=== PATIENT | female | born 1945 | race Caucasian/White ===

== ENCOUNTER → 2018-07-11 | Outpatient (CLI) | payer MEDICARE ==
[~2018-07-11] MED LIST: BENZAPRIL; CLINDAMYCIN
--- NOTE | 2018-07-11 11:57 | Diagnostic Imaging Report ---
INDICATION: Fall and left ankle pain. TIME OF EXAM: 11:42 a.m. FINDINGS: Three views of the left ankle demonstrate a nondisplaced fracture of the distal fibula. No significant displacement or angulation is seen. There is moderate soft tissue swelling about the lateral ankle. The ankle mortise is maintained. Talar dome is smooth. IMPRESSION: Nondisplaced distal fibular fracture. Dictated by: Dictated on workstation # [id number]
--- NOTE | 2018-07-11 12:02 | Diagnostic Imaging Report ---
INDICATION: Fall with left foot pain. Time of exam 11:45 AM 3 views of the left foot were obtained. There are severe degenerative changes involving the first MTP joint. There appear to be osseous erosive changes of the distal first metatarsal as well as the proximal phalanx of the great toe. The remaining MTP joints are unremarkable. No fractures are identified. Midfoot and hindfoot are unremarkable apart from some degenerative changes at the tarsal metatarsal joints. Impression: Chronic changes with severe erosive changes at the first MTP joint perhaps on the basis of an inflammatory arthritis. No acute bony abnormality is seen. Dictated by: Dictated on workstation # [id number]
== END ==
LOC: RAD 11:08
PROVIDERS: ATTEND Nurse Practitioner Family
DX: S82.832A Other fracture of upper and lower end of left fibula, initial encounter for closed fracture (principal); M85.872 Other specified disorders of bone density and structure, left ankle and foot; W19.XXXA Unspecified fall, initial encounter
CPT/HCPCS: 73610; 73630

== ENCOUNTER → 2022-01-19 | Outpatient (CLI) | payer MEDICARE ==
--- NOTE | 2022-01-19 13:17 | Diagnostic Imaging Report ---
INDICATION: R WRIST PAIN, R ARM PAIN, R HAND PAIN COMPARISON: None. FINDINGS: 2 views of the right forearm were obtained and show no fractures, dislocations, or other acute bony abnormalities. Joint spaces are well maintained throughout. The soft tissues appear unremarkable. No radiopaque foreign bodies are identified. IMPRESSION: Unremarkable radiographic exam of the right forearm. Dictated by: Dictated on workstation # [id number]
--- NOTE | 2022-01-19 13:18 | Diagnostic Imaging Report ---
INDICATION: R WRIST PAIN, R ARM PAIN, R HAND PAIN COMPARISON: None. FINDINGS: 3 views of the right hand were obtained and show no fractures, dislocations, or other acute bony abnormalities. Multiple advanced osteoarthritic changes are noted, greatest at the 1st carpometacarpal joint space and 5th interphalangeal joint space. The soft tissues appear unremarkable. No radiopaque foreign bodies are identified. IMPRESSION: Advanced osteoarthritic changes, but no acute fracture or dislocation of the right hand. Dictated by: Dictated on workstation # [id number]
== END ==
LOC: RAD 11:34
PROVIDERS: ATTEND Family Medicine
DX: M19.031 Primary osteoarthritis, right wrist (principal); M19.041 Primary osteoarthritis, right hand; M79.601 Pain in right arm
CPT/HCPCS: 73090; 73130

== ENCOUNTER 2022-05-18 08:20 | Inpatient (IN) | payer MEDICARE ==
[2022-05-18] VITALS (10 sets, daily range): BP systolic 104–155; BP diastolic 61–85
[~2022-05-18] VITALS: Ht 157 cm; Wt 48.0 kg
[2022-05-18 09:00] LABS: BASOPHILS % (AUTO) 0 % (0-10); EOSINOPHILS % (AUTO) 0 % (0-10); HEMATOCRIT 46 % (35-52); HEMOGLOBIN 15.4 g/dL (11.5-16.0); LYMPHOCYTES # (AUTO) 1.2 10^3/uL (1.0-4.0); LYMPHOCYTES % (AUTO) 9 % (12-44); MEAN CORPUSCULAR HEMOGLOBIN 29 pg (25-34); MEAN CORPUSCULAR HGB CONC 33 g/dL (32-36); MEAN CORPUSCULAR VOLUME 87 fL (80-99); MONOCYTES # (AUTO) 1.2 10^3/uL (0.0-1.0); MONOCYTES % (AUTO) 9 % (0-12); NEUTROPHILS # (AUTO) 10.8 10^3/uL (1.8-7.8); NEUTROPHILS % (AUTO) 81 % (42-75); PLATELET COUNT 381 10^3/uL (130-400); WHITE BLOOD COUNT 13.3 10^3/uL (4.3-11.0)
[2022-05-18] MEDS ORDERED: LACTATED RINGERS 1,000 ML IV ONE (09:00)
[2022-05-18] MEDS ORDERED: ONDANSETRON 4 MG/2 ML (SDV) Z0FRAN IVP ONE (09:00)
[2022-05-18 09:10] LABS: ALBUMIN 4.5 GM/DL (3.2-4.5)
[2022-05-18 09:11] LABS: CALCIUM 10.1 MG/DL (8.5-10.1)
[2022-05-18 09:13] LABS: TOTAL PROTEIN 8.5 GM/DL (6.4-8.2)
[2022-05-18 09:14] LABS: BILIRUBIN,TOTAL 1.6 MG/DL (0.1-1.0)
[2022-05-18 09:16] LABS: CREATININE SERUM 1.68 MG/DL (0.60-1.30)
--- NOTE | 2022-05-18 09:43 | ED GI ---
General Chief Complaint: Abdominal/GI Problems Stated Complaint: N/V Nursing Triage Note: PT PRESENTS TO ED VIA POV FROM HOME WITH COMPLAINTS OF NO BM SINCE 05/14/22. PT STATES SHE HAS NOT EATEN SINCE LAST WEDNESDAY WELL. PT REPORTS SHE STARTED VOMITING WEDNESDAY NIGHT. PT STATES HER LAST EPISODE OF EMESIS SMELLED LIKE STOOL. Source of Information: Patient Exam Limitations: No Limitations History of Present Illness Date Seen by Provider: May 18, 2022 Time Seen by Provider: 08:54 Initial Comments This 77-year-old woman presents to the emergency room with complaints of nausea and vomiting for 5 days. She noticed a "lymph node" in the right groin at the onset of symptoms. Vomiting started 6 or 7 hours later. She feels constipated and has had small hard stools recently. Her last bowel movement was on , the day of symptom onset. She has not had any fever. She has not been able to keep down any oral intake. She has some mild pain with vomiting, but pain is not a prominent feature of her symptoms. She states her emesis the past 2 days has had the appearance and smell of stool. She reports tachycardia with heart rate in the 120s at home. Allergies and Home Medications Allergies Coded Allergies: Penicillins (Unverified Allergy, Mild, 12/04/09) Patient Home Medication List Home Medication List Reviewed: Yes , (Reported) Entered as Reported by: ANTONIO SMILEY on 12/04/0942 [Benzapril] , (Reported) Entered as Reported by: ANTONIO SMILEY on 12/04/0943 Review of Systems Review of Systems Constitutional: no symptoms reported EENTM: No Symptoms Reported Respiratory: No Symptoms Reported Cardiovascular: See HPI Gastrointestinal: See HPI Genitourinary: No Symptoms Reported Musculoskeletal: no symptoms reported Skin: no symptoms reported Psychiatric/Neurological: No Symptoms Reported Endocrine: No Symptoms Reported Hematologic/Lymphatic: See HPI Past Breeyhy-Byurga-Ovtwmp Hx Patient Social History Tobacco Use?: No Substance use?: No Alcohol Use?: No Pt feels they are or have been: No Immunizations Up To Date First/Initial COVID19 Vaccinat: YES Second COVID19 Vaccination Arnav: YES COVID19 Vaccine Drug Safety Associate: MODERNA Past Medical History Surgery/Hospitalization HX: PMH: LEAKING HEART VALVES, HTN, Surgeries: Yes (Neck tumor resection) Breast (Bilateral mastectomy and implants) Respiratory: No Cardiac: Yes Hypertension, Rheumatic Fever, Valvular Heart Disease Neurological: No : No Reproductive Disorders: No Genitourinary: No Gastrointestinal: No Musculoskeletal: Yes Arthritis HEENT: No Cancer: No Psychosocial: No Integumentary: No Physical Exam Vital Signs Vital Signs - First Documented 05/18/22 08:39 Temp 36.6 Pulse 98 Resp 16 B/P (MAP) 133/82 (99) Pulse Ox 95 Capillary Refill : Less Than 3 Seconds Height/Weight/BMI Height: '" Weight: lbs. oz. kg; 19.00 BMI Method:Stated General Appearance: WD/WN, no apparent distress, thin HEENT: PERRL/EOMI, normal ENT inspection, other (Pasty dry mouth) Neck: normal inspection Respiratory: lungs clear, normal breath sounds, no respiratory distress Cardiovascular: regular rate, rhythm, no edema, no murmur Gastrointestinal: normal bowel sounds, soft, distended; No tenderness; other (Tympanic to percussion, firm lump in the right inguinal canal region about 3 x 5 cm that is not reducible and could represent an inguinal hernia.) Extremities: normal inspection, no pedal edema Neurologic/Psychiatric: digital composer II-XII nml as tested, no motor/sensory deficits, alert, normal mood/affect, oriented x 3 Skin: normal color, warm/dry Progress/Results/Core Measures Results/Orders Lab Results Laboratory Tests Test 05/18/22 08:54 05/18/22 10:13 Range/Units White Blood Count 13.3 H 4.3-11.0 10^3/uL Red Blood Count 5.29 H 3.80-5.11 10^6/uL Hemoglobin 15.4 11.5-16.0 g/dL Hematocrit 46 35-52 % Mean Corpuscular Volume 87 80-99 fL Mean Corpuscular Hemoglobin 29 25-34 pg Mean Corpuscular Hemoglobin Concent 33 32-36 g/dL Red Cell Distribution Width 12.5 10.0-14.5 % Platelet Count 381 130-400 10^3/uL Mean Platelet Volume 10.0 9.0-12.2 fL Immature Granulocyte % (Auto) 0 % Neutrophils (%) (Auto) 81 H 42-75 % Lymphocytes (%) (Auto) 9 L 12-44 % Monocytes (%) (Auto) 9 0-12 % Eosinophils (%) (Auto) 0 0-10 % Basophils (%) (Auto) 0 0-10 % Neutrophils # (Auto) 10.8 H 1.8-7.8 10^3/uL Lymphocytes # (Auto) 1.2 1.0-4.0 10^3/uL Monocytes # (Auto) 1.2 H 0.0-1.0 10^3/uL Eosinophils # (Auto) 0.0 0.0-0.3 10^3/uL Basophils # (Auto) 0.0 0.0-0.1 10^3/uL Immature Granulocyte # (Auto) 0.1 0.0-0.1 10^3/uL Sodium Level 137 135-145 MMOL/L Potassium Level 4.0 3.6-5.0 MMOL/L Chloride Level 97 L 98-107 MMOL/L Carbon Dioxide Level 25 21-32 MMOL/L Anion Gap 15 H 5-14 MMOL/L Blood Urea Nitrogen 39 H 7-18 MG/DL Creatinine 1.68 H 0.60-1.30 MG/DL Estimat Glomerular Filtration Rate 31 BUN/Creatinine Ratio 23 Glucose Level 127 H 70-105 MG/DL Calcium Level 10.1 8.5-10.1 MG/DL Corrected Calcium 9.7 8.5-10.1 MG/DL Total Bilirubin 1.6 H 0.1-1.0 MG/DL Aspartate Amino Transf (AST/SGOT) 29 5-34 U/L Alanine Aminotransferase (ALT/SGPT) 23 0-55 U/L Alkaline Phosphatase 83 40-136 U/L C-Reactive Protein High Sensitivity 4.19 H 0.00-0.50 MG/DL Total Protein 8.5 H 6.4-8.2 GM/DL Albumin 4.5 3.2-4.5 GM/DL Lipase 45 8-78 U/L Urine Color YELLOW Urine Clarity SL CLOUDY Urine pH 7.0 5-9 Urine Specific [place] 1.015 L 1.016-1.022 Urine Protein 2+ H NEGATIVE Urine Glucose (UA) NEGATIVE NEGATIVE Urine Ketones TRACE H NEGATIVE Urine Nitrite NEGATIVE NEGATIVE Urine Bilirubin NEGATIVE NEGATIVE Urine Urobilinogen 0.2 < = 1.0 MG/DL Urine Leukocyte Esterase 3+ H NEGATIVE Urine RBC (Auto) TRACE-I H NEGATIVE Urine RBC RARE /HPF Urine WBC 50-100 H /HPF Urine Squamous Epithelial Cells 10-25 H /HPF Urine Crystals NONE /LPF Urine Bacteria FEW H /HPF Urine Casts PRESENT /LPF Urine Hyaline Casts 2-5 H /LPF Urine Mucus SMALL H /LPF Urine Culture Indicated YES My Orders Orders - AN CORRAL MD Cbc With Automated Diff (05/18/22 08:54) Comprehensive Metabolic Panel (05/18/22 08:54) Hs C Reactive Protein (05/18/22 08:54) Lipase (05/18/22 08:54) Ua Culture If Indicated (05/18/22 08:54) Ed Iv/Invasive Line Start (05/18/22 08:54) Lactated Ringers (Lr 1000 Ml Iv Solution (05/18/22 09:00) Ondansetron Injection (Zofran Injectio (05/18/22 09:00) Ct Abdomen/Pelvis Wo (05/18/22 09:33) Benzocaine Extension Tube (Hurricaine Ex (05/18/22 10:15) Ng Tube Insert & Assessment (05/18/22 10:46) Urine Culture (05/18/22 10:13) Lidocaine/Epi Mpf 2% 1:200,000 (Xylocain (05/18/22 11:51) Medications Given in ED Current Medications Medications Dose Ordered Sig/Rashard Route Start Time Stop Time Status Last Admin Dose Admin Benzocaine 1 ea ONCE ONCE XX 05/18/22 10:15 05/18/22 10:16 DC 05/18/22 11:13 1 EA Lactated Ringer's 1,000 ml @ 0 mls/hr Q0M ONCE IV 05/18/22 09:00 05/18/22 09:01 DC 05/18/22 09:03 0 MLS/HR Ondansetron HCl 8 mg ONCE ONCE IVP 05/18/22 09:00 05/18/22 09:01 DC 05/18/22 09:03 8 MG Vital Signs/I&O 05/18/22 08:39 Temp 36.6 Pulse 98 Resp 16 B/P (MAP) 133/82 (99) Pulse Ox 95 Blood Pressure Mean: 99 Progress Progress Note #1: Time: 09:42 Progress Note Patient was treated with Zofran and IV fluids are infusing. Labs were reviewed. Patient appears to have acute kidney injury. The "lymph node" in her groin could be incarcerated inguinal hernia. CT scan is pending. Progress Note #2: Time: 11:57 Progress Note Patient has been stable without complaints during her ER stay. CT scan revealed right inguinal hernia. I again attempted to reduce this unsuccessfully. The hernia appears very firm and incarcerated. I spoke with Dr. Anaya who anticipates surgery around the noon hour today. He has presented to the ER to see the patient personally. Departure Communication (Admissions) Time/Spoke to Admitting Phy: 10:47 Dr. Anaya Impression Primary Impression: Right inguinal hernia Additional Impressions: Small bowel obstruction Nausea and vomiting Qualified Codes: R11.2 - Nausea with vomiting, unspecified Disposition: ADMITTED INPATIENT Condition: Stable Admissions Decision to Admit Reason: Admit from ER (General) Decision to Admit/Date: May 18, 2022 Time/Decision to Admit Time: 10:47 Departure-Patient Inst. Referrals: ZHEN ESCOBAR DO (PCP/Family) Primary Care Physician Copy Copies To 1: ZHEN ESCOBAR JOSHUA T MD May 18, 2022 09:42
[2022-05-18] MEDS ORDERED: HURRICAINE EXT TUBE (BENZOCAINE) XX ONE (10:15)
--- NOTE | 2022-05-18 10:23 | Diagnostic Imaging Report ---
PROCEDURE: CT abdomen and pelvis without contrast. TECHNIQUE: Multiple contiguous axial images were obtained through the abdomen and pelvis without the use of intravenous contrast. Auto Exposure Controls were utilized during the CT exam to meet ALARA standards for radiation dose reduction. INDICATION: Vomiting, constipation, pain. COMPARISON: No prior examinations are available for comparison. FINDINGS: There are findings of mid small bowel obstruction. The transition appears to be in the right lower quadrant associated with the right inguinal hernia with the hernia sac contents medial to the neurovascular bundle. There is some distal decompressed pelvic small bowel through the terminal ileum and the colon is nondilated. The colonic fecal load is not pathologic. There are a few scattered sigmoidal diverticula but no features of diverticulitis. The fluid-containing stomach has an air-fluid level and is mildly distended. No pneumatosis. No free gas. The liver, gallbladder, bile ducts, spleen, adrenals, and pancreas are all nonacute. There is no hydroureteronephrosis. IMPRESSION: 1. There is a mid small bowel obstruction, believed to be secondary to a right inguinal hernia, with the proximal small bowel dilated. There is an air-fluid level within the mildly distended stomach. 2. The distal small bowel and colon are nondilated. There is noninflamed colonic and sigmoidal diverticulosis. Dictated by: Dictated on workstation # [id number]
[2022-05-18 10:26] LABS: BILIRUBIN,URINE NEGATIVE (NEGATIVE); CLARITY,URINE SL CLOUDY; COLOR,URINE YELLOW; GLUCOSE, URINE (UA) NEGATIVE (NEGATIVE); KETONES,URINE TRACE (NEGATIVE); LEUKOCYTE ESTERASE ,URINE 3+ (NEGATIVE); NITRITE,URINE NEGATIVE (NEGATIVE); PROTEIN,URINE 2+ (NEGATIVE)
[2022-05-18 11:06] LABS: BACTERIA,URINE FEW /HPF; RBC,URINE RARE /HPF; WBC,URINE 50-100 /HPF
[2022-05-18] MEDS ORDERED: LIDOCAINE/EPI 2% 1:200,00 (XYLOCAINE) 20 ML VIAL ONE (11:51)
--- NOTE | 2022-05-18 12:14 | Consultation - Surgery ---
History of Present Illness History of Present Illness Patient Consulted On(amelie/time) 05/18/22 12:08 Date Seen by Provider: May 18, 2022 Time Seen by Provider: 12:08 History of Present Illness Consult seen and evaluated in ED for incarcerated right inguinal hernia, small bowel obstruction. 77 year old female noticed hard lump in right groin last . Developed nausea and vomiting. Thought lump was a lymph node. Nothing made better or worse. Came to the ED to be further evaluated. Had ct scan showing right inguinal hernia with bowel in it. Dilated small bowel. Allergies and Home Medications Allergies Coded Allergies: Penicillins (Unverified Allergy, Mild, 12/04/09) Patient Home Medication List Home Medication List Reviewed: Yes , (Reported) Entered as Reported by: ANTONIO SMILEY on 12/04/09 004 [Benzapril] , (Reported) Entered as Reported by: ANTONIO SMILEY on 12/04/09 0044 Past Kpbecki-Drpxmo-Jhnerb Hx Patient Social History Smoking Status: Never a Smoker Alcohol Use?: No Surgeries History of Surgeries: Yes (Neck tumor resection) Surgeries: Breast (Bilateral mastectomy and implants) Respiratory History of Respiratory Disorde: No Cardiovascular History of Cardiac Disorders: Yes Cardiac Disorders: Hypertension, Rheumatic Fever, Valvular Heart Disease Neurological History of Neurological Disord: No Reproductive System : No Hx Reproductive Disorders: No Genitourinary History of Genitourinary Disor: No Gastrointestinal History of Gastrointestinal Di: No Musculoskeletal History of Musculoskeletal Dis: Yes Musculoskeletal Disorders: Arthritis HEENT History of HEENT Disorders: No Cancer History of Cancer: No Psychosocial History of Psychiatric Problem: No Integumentary History of Skin or Integumenta: No Reviewed Nursing Assessment Reviewed/Agree w Nursing PMH: Yes Family Medical History Significant Family History: No Pertinent Family Hx Review of Systems-General Constitutional: No chills, No diaphoresis EENTM: No blurred vision, No double vision Respiratory: No cough, No dyspnea on exertion Cardiovascular: No chest pain, No palpitations Gastrointestinal: nausea, vomiting, other (right groin lump) Genitourinary: No decreased output, No discharge Musculoskeletal: No back pain, No joint pain Skin: No change in color, No change in hair/nails Psychiatric/Neurological: Denies Anxiety, Denies Depressed, Denies Emotional Problems All Other Systems Reviewed Negative Unless Noted: Yes (Negative excepted noted.) Physical Exam-General Problems Physical Exam Vital Signs Vital Signs - First Documented 05/18/22 08:39 Temp 36.6 Pulse 98 Resp 16 B/P (MAP) 133/82 (99) Pulse Ox 95 Capillary Refill : Less Than 3 Seconds General Appearance: no apparent distress, thin HEENT: PERRL/EOMI, normal ENT inspection Neck: non-tender, supple Respiratory: chest non-tender, no respiratory distress, no accessory muscle use Cardiovascular: regular rate, rhythm, no JVD Gastrointestinal: soft, other (right inguinal hernia) Rectal: deferred Back: no CVA tenderness, no vertebral tenderness Extremities: non-tender, normal inspection Neurologic/Psychiatric: alert, normal mood/affect, oriented x 3 Skin: normal color, warm/dry Lymphatic: no adenopathy Data Review Labs Laboratory Tests 05/18/22 08:54: White Blood Count 13.3H, Red Blood Count 5.29H, Hemoglobin 15.4, Hematocrit 46, Mean Corpuscular Volume 87, Mean Corpuscular Hemoglobin 29, Mean Corpuscular Hemoglobin Concent 33, Red Cell Distribution Width 12.5, Platelet Count 381, Mean Platelet Volume 10.0, Immature Granulocyte % (Auto) 0, Neutrophils (%) (Auto) 81H, Lymphocytes (%) (Auto) 9L, Monocytes (%) (Auto) 9, Eosinophils (%) (Auto) 0, Basophils (%) (Auto) 0, Neutrophils # (Auto) 10.8H, Lymphocytes # (Auto) 1.2, Monocytes # (Auto) 1.2H, Eosinophils # (Auto) 0.0, Basophils # (Auto) 0.0, Immature Granulocyte # (Auto) 0.1, Sodium Level 137, Potassium Level 4.0, Chloride Level 97L, Carbon Dioxide Level 25, Anion Gap 15H, Blood Urea Nitrogen 39H, Creatinine 1.68H, Estimat Glomerular Filtration Rate 31, BUN/Creatinine Ratio 23, Glucose Level 127H, Calcium Level 10.1, Corrected Calcium 9.7, Total Bilirubin 1.6H, Aspartate Amino Transf (AST/SGOT) 29, Alanine Aminotransferase (ALT/SGPT) 23, Alkaline Phosphatase 83, C-Reactive Protein High Sensitivity 4.19H, Total Protein 8.5H, Albumin 4.5, Lipase 45 05/18/22 10:13: Urine Color YELLOW, Urine Clarity SL CLOUDY, Urine pH 7.0, Urine Specific [place] 1.015L, Urine Protein 2+H, Urine Glucose (UA) NEGATIVE, Urine Ketones TRACEH, Urine Nitrite NEGATIVE, Urine Bilirubin NEGATIVE, Urine Urobilinogen 0.2, Urine Leukocyte Esterase 3+H, Urine RBC (Auto) TRACE-IH, Urine RBC RARE, Urine WBC 50-100H, Urine Squamous Epithelial Cells 10-25H, Urine Crystals NONE, Urine Bacteria FEWH, Urine Casts PRESENT, Urine Hyaline Casts 2-5H, Urine Mucus SMALLH, Urine Culture Indicated YES Assessment/Plan Assessment/Plan Assessment/Plan right inguinal incarcerated hernia small bowel obstruction discussed need for surgery since incarcerated and possibly strangulated bowel. after discussing she wishes to proceed with open right inguinal hernia repair po ssible laparoscopy all other indicated procedures. understands possible need for small bowel resection. NPO To OR NG tube in. KEMI ÁLVAREZ DO May 18, 2022 12:14
[2022-05-18] MEDS ORDERED: ONDANSETRON 4 MG/2 ML (SDV) Z0FRAN ONE (12:15)
[2022-05-18] MEDS ORDERED: proPOfol 200 MG/20 ML (DIPRIVAN) VIAL IV ONE (12:15)
[2022-05-18] MEDS ORDERED: LIDOCAINE PF 2% 5 ML (XYLOCAINE) VIAL ONE (12:15)
[2022-05-18] MEDS ORDERED: ROCURONIUM 50 MG/5 ML (ZEMURON) VIAL IV ONE (12:15)
[2022-05-18] MEDS ORDERED: MIDAZOLAM 2 MG/2 ML (VERSED) VIAL ONE (12:15)
[2022-05-18] MEDS ORDERED: CLINDAMYCIN 600 MG/50 ML IVPB 50 ML IV ONE ×2 (12:15→12:17)
[2022-05-18] MEDS ORDERED: SUCCINYLCHOLINE INJ 100 MG/5 ML SYR/VIAL ONE (12:15)
[2022-05-18] MEDS ORDERED: fentaNYL INJ 100 MCG/2 ML AMP ONE (12:15)
[2022-05-18] MEDS: LACTATED RINGERS 1,000 ML IV PRN ×2 (12:35→13:30)
[2022-05-18] MEDS ORDERED: GLYCOPYRROLATE 0.2 MG/ML (ROBINUL) 2 ML VIAL ONE (13:38)
[2022-05-18] MEDS ORDERED: NEOSTIGMINE (BLOXIVERZ ) 1 MG/1ML 10 ML VIAL ONE (13:38)
--- NOTE | 2022-05-18 13:53 | Progress Note-Post Operative ---
Post-Operative Progess Note Surgeon (s)/Spa Host (s) Surgeon KEMI ÁLVAREZ DO Spa Host: Dr. Morales Pre-Operative Diagnosis right inguinal hernia, Post-Operative Diagnosis strangulated right femoral hernia Procedure & Operative Findings Date of Procedure 05/18/22 Procedure Performed/Findings open right strangulated femoral hernia repair with small bowel resection. Anesthesia Type general Estimated Blood Loss Estimated blood loss (mL): minimal Specimens/Packing Specimens Removed small bowel KEMI ÁLVAREZ DO May 18, 2022 13:53
[2022-05-18] MEDS ORDERED: morphine INJ 4 MG/ML 1 ML (VIAL/SYRINGE) IVP PRN (14:00)
[2022-05-18] MEDS ORDERED: SEVOFLURANE (ULTANE) 15 ML INHAL SOLN ONE (14:04)
[2022-05-18] MEDS ORDERED: ONDANSETRON 4 MG/2 ML (SDV) Z0FRAN IVP PRN (14:15)
[2022-05-18] MEDS ORDERED: HYDROmorphone 2 MG/ML VIAL (DILAUDID) IV ONE (14:15)
[2022-05-18] MEDS: metroNIDAZOLE 500MG/100ML IVPB 100 ML IV SCH ×2 (15:15→22:18)
[2022-05-18] MEDS: LACTATED RINGERS 1,000 ML IV SCH ×2 (15:24→20:10)
[2022-05-18] MEDS: CLINDAMYCIN 600 MG/50 ML IVPB 50 ML IV SCH (20:08)
[2022-05-19] VITALS (7 sets, daily range): BP systolic 131–163; BP diastolic 67–79
[2022-05-19] MEDS: CLINDAMYCIN 600 MG/50 ML IVPB 50 ML IV SCH (04:35)
--- NOTE | 2022-05-19 05:54 | OPERATIVE REPORT ---
DATE OF SERVICE: 05/18/2022 PREOPERATIVE DIAGNOSIS: Right inguinal hernia, incarcerated small bowel obstruction. POSTOPERATIVE DIAGNOSIS: Strangulated right femoral hernia. PROCEDURE: Open right femoral hernia repair with primary closure and small bowel resection. SURGEON: Jerry Anaya DO MANAGER SPANISH: Dr. Morales, assisted in retraction, dissection and closure. ANESTHESIA: General. ESTIMATED BLOOD LOSS: Minimal. COMPLICATIONS: None. INDICATIONS: The patient is a 77-year-old female, who had a lump in the right groin. She was having nausea, vomiting and CT scan showing a right inguinal hernia and changes of small bowel obstruction. The patient was discussed surgical options. She understands risks and benefits of procedure and wished to proceed. Consent was signed in the chart. DESCRIPTION OF PROCEDURE: The patient was taken to the operating suite. She was prepped and draped in sterile fashion. Timeout was performed. Local anesthetic was infiltrated in the right groin area. A 15 blade scalpel was used to make a skin incision and cautery used to dissect down to the external oblique, which the shelving edge of the right inguinal ligament was isolated and visualized. A mass was palpable below the inguinal ligament and the tissue was bluntly divided and small bowel was present, which had ischemic and necrotic changes . This was completely dissected around bluntly and then was able to be reduced. The femoral canal was closed with 0 Vicryl in a [id number] fashion. No mesh due to ischemic bowel. A small midline incision was made just below the umbilicus. The small bowel was then brought out demonstrating dilated small bowel proximal, the knuckle of bowel that was strangulated through the hernia was present with again ischemic changes distal to this area, but the bowel was decompressed proximal and distal to the ischemic area. Hemostat was used to dissect around the bowel and the bowel was brought through [id number] fashion and the stapler was placed down each limb and fired. A crotch stitch was placed using 2-0 0 Vicryl suture. A reload was then used to create the 3rd to complete the [id number]-me-rgnf anastomosis. The mesentery of the bowel being resected was divided and cross clamped with hemostats and cautery was used to remove this segment. The mesentery was then tied off and the mesenteric defect of the bowel was then closed with 3-0 Vicryl suture. The bowel was then ran from the cecum all the way to the ligament of Treitz, noting no other pathology except for towards the proximal portion of bowel. There were several small bowel diverticulum present. No other pathology. Prior to opening the midline incision, the right groin Rain fascia was closed using 3-0 Vicryl and the skin was then stapled closed. Once the bowel resection was performed using 1-0 looped PDS, the fascia was then closed in a running fashion. The midline incision was irrigated and the skin was then closed with khanh. The areas were washed and dried and sterile bandages were applied. The patient tolerated the procedure well without any complications. She was taken to recovery room in stable condition. RECOMMENDATIONS: Due to the primary repair due to the ischemic bowel, we will consider going back robotically in the near future to repair with mesh. Job ID: [id number] DocumentID: [id number] Dictated Date: 05/18/2022 22:44:49 Assistant Accounting Manager Date: 05/19/2022 05:52:50 Dictated By: DO KYLE RUSSELL
[2022-05-19 05:58] LABS: HEMATOCRIT 38 % (35-52); HEMOGLOBIN 12.5 g/dL (11.5-16.0); MEAN CORPUSCULAR HEMOGLOBIN 29 pg (25-34); MEAN CORPUSCULAR HGB CONC 33 g/dL (32-36); MEAN CORPUSCULAR VOLUME 88 fL (80-99); MEAN PLATELET VOLUME 10.4 fL (9.0-12.2); PLATELET COUNT 280 10^3/uL (130-400); WHITE BLOOD COUNT 9.4 10^3/uL (4.3-11.0)
[2022-05-19 06:09] LABS: ALBUMIN 3.2 GM/DL (3.2-4.5); POTASSIUM 3.6 MMOL/L (3.6-5.0)
[2022-05-19 06:10] LABS: CALCIUM 8.5 MG/DL (8.5-10.1)
[2022-05-19 06:11] LABS: TOTAL PROTEIN 5.9 GM/DL (6.4-8.2)
[2022-05-19 06:13] LABS: BILIRUBIN,TOTAL 1.3 MG/DL (0.1-1.0)
[2022-05-19 06:15] LABS: CREATININE SERUM 1.17 MG/DL (0.60-1.30)
[2022-05-19] MEDS: PANTOPRAZOLE 40 MG (PROTONIX) VIAL IV SCH (07:38)
[2022-05-19] MEDS: LACTATED RINGERS 1,000 ML IV SCH ×2 (07:38→18:21)
--- NOTE | 2022-05-19 08:34 | Progress Note - Surgery ---
Subjective Date Seen by a Provider: May 19, 2022 Time Seen by a Provider: 08:34 Subjective/Events-last exam Pain controlled. No flatus or bm. Ng tube to LIWS minimal output. Using IS. NPO Objective Exam Vital Signs Date Time Temp Pulse Resp B/P (MAP) Pulse Ox O2 Delivery O2 Flow Rate FiO2 05/19/22 07:53 37.5 98 18 153/73 (99) 84 Room Air 05/19/22 04:00 37.0 95 20 155/79 (104) 93 Room Air 05/19/22 00:00 37.0 90 18 138/74 (95) 94 Room Air 05/18/22 20:41 Room Air 05/18/22 19:01 37.2 88 18 140/65 (90) 94 Room Air 05/18/22 16:23 36.9 86 20 125/61 (82) 92 Room Air 05/18/22 15:08 36.5 75 16 131/69 (89) 97 Room Air 05/18/22 15:00 Room Air 05/18/22 14:55 Room Air 05/18/22 14:50 36.6 16 144/78 (100) 96 Room Air 05/18/22 14:40 Room Air 05/18/22 14:40 16 152/73 (99) 96 Room Air 05/18/22 14:30 16 148/78 (101) 100 OxyMask 3.00 05/18/22 14:25 OxyMask 5.00 05/18/22 14:20 21 155/77 (103) 100 OxyMask 5.00 05/18/22 14:10 20 131/66 (87) 100 OxyMask 8 05/18/22 14:10 OxyMask 8 05/18/22 14:00 20 104/85 (91) 100 OxyMask 8 05/18/22 13:55 OxyMask 8 05/18/22 13:55 36.9 16 105/84 (91) 100 OxyMask 8 05/18/22 12:29 70 16 126/78 98 05/18/22 08:39 36.6 98 16 133/82 (99) 95 I & O 05/19/22 07:00 Intake Total 2750 ml Output Total 350 ml Balance 2400 ml Capillary Refill : Less Than 3 Seconds General Appearance: No Apparent Distress, WD/WN HEENT: PERRL/EOMI, Normal ENT Inspection Neck: Normal Inspection, Non Tender Respiratory: Chest Non Tender, No Accessory Muscle Use, No Respiratory Distress Cardiovascular: Regular Rate, Rhythm, No JVD Gastrointestinal: soft, other (incisions c/d/i no signs of infection) Extremity: Normal Inspection, Non Tender Neurologic/Psychiatric: Alert, Oriented x3 Skin: Normal Color, Warm/Dry Lymphatic: No Adenopathy Results Lab Laboratory Tests 05/18/22 08:54: White Blood Count 13.3H, Red Blood Count 5.29H, Hemoglobin 15.4, Hematocrit 46, Mean Corpuscular Volume 87, Mean Corpuscular Hemoglobin 29, Mean Corpuscular Hemoglobin Concent 33, Red Cell Distribution Width 12.5, Platelet Count 381, Mean Platelet Volume 10.0, Immature Granulocyte % (Auto) 0, Neutrophils (%) (Auto) 81H, Lymphocytes (%) (Auto) 9L, Monocytes (%) (Auto) 9, Eosinophils (%) (Auto) 0, Basophils (%) (Auto) 0, Neutrophils # (Auto) 10.8H, Lymphocytes # (Auto) 1.2, Monocytes # (Auto) 1.2H, Eosinophils # (Auto) 0.0, Basophils # (Auto) 0.0, Immature Granulocyte # (Auto) 0.1, Sodium Level 137, Potassium Level 4.0, Chloride Level 97L, Carbon Dioxide Level 25, Anion Gap 15H, Blood Urea Nitrogen 39H, Creatinine 1.68H, Estimat Glomerular Filtration Rate 31, BUN/Creatinine Ratio 23, Glucose Level 127H, Calcium Level 10.1, Corrected Calcium 9.7, Total Bilirubin 1.6H, Aspartate Amino Transf (AST/SGOT) 29, Alanine Aminotransferase (ALT/SGPT) 23, Alkaline Phosphatase 83, C-Reactive Protein High Sensitivity 4.19H, Total Protein 8.5H, Albumin 4.5, Lipase 45 05/18/22 10:13: Urine Color YELLOW, Urine Clarity SL CLOUDY, Urine pH 7.0, Urine Specific [place] 1.015L, Urine Protein 2+H, Urine Glucose (UA) NEGATIVE, Urine Ketones TRACEH, Urine Nitrite NEGATIVE, Urine Bilirubin NEGATIVE, Urine Urobilinogen 0.2, Urine Leukocyte Esterase 3+H, Urine RBC (Auto) TRACE-IH, Urine RBC RARE, Urine WBC 50-100H, Urine Squamous Epithelial Cells 10-25H, Urine Crystals NONE, Urine Bacteria FEWH, Urine Casts PRESENT, Urine Hyaline Casts 2-5H, Urine Mucus SMALLH, Urine Culture Indicated YES 05/19/22 05:30: White Blood Count 9.4, Red Blood Count 4.36, Hemoglobin 12.5, Hematocrit 38, Mean Corpuscular Volume 88, Mean Corpuscular Hemoglobin 29, Mean Corpuscular Hemoglobin Concent 33, Red Cell Distribution Width 12.5, Platelet Count 280, Mean Platelet Volume 10.4, Sodium Level 138, Potassium Level 3.6, Chloride Level 102, Carbon Dioxide Level 25, Anion Gap 11, Blood Urea Nitrogen 27H, Creatinine 1.17, Estimat Glomerular Filtration Rate 48, BUN/Creatinine Ratio 23, Glucose Level 105, Calcium Level 8.5, Corrected Calcium 9.1, Total Bilirubin 1.3H, Aspartate Amino Transf (AST/SGOT) 20, Alanine Aminotransferase (ALT/SGPT) 15, Alkaline Phosphatase 54, Total Protein 5.9L, Albumin 3.2 Microbiology 05/18/22 Urine Culture - Final, Complete Mixed Bacterial Radha Assessment/Plan Assessment/Plan Assessment/Plan right inguinal incarcerated hernia small bowel obstruction s/p strangulated right femoral primary hernia repair and small bowel resection iv fluids dvt prophylaxis, gi prophylaxis awaiting bowel function IS NPO NG tube in. KEMI ÁLVAREZ DO May 19, 2022 08:34
--- NOTE | 2022-05-19 10:47 | Physical Therapy Evaluation ---
PT Evaluation-General Medical Diagnosis Admission Date May 18, 2022 at 13:47 Medical Diagnosis: small bowel obstruction Onset Date: May 18, 2022 Therapy Diagnosis Therapy Diagnosis: debility/weakness Precautions Precautions/Isolations: Fall Prevention, Standard Precautions Weight Bear Status Right Lower Extremity: Right Weight Bearing/Tolerated Left Lower Extremity: Left Weight Bearing/Tolerated Referral Physician: Héctor Reason for Referral: Evaluation/Treatment Medical History Pertinent Medical History: Breast CA S/P Mastectomy, HTN Current History ER secondary to abdominal pain and no BM since 05/14/22 Reviewed History: Yes Social History Home: Single Level Current Living Status: Alone Entry Into Home: Stairs With Railing PT Steps Into Home: 3 Prior Prior Level of Function SCALE: Activities may be completed with or without assistive devices. 1-Tqnwhshjmd-raxwkbb completes the activity by him/herself with no assistance from a helper. 5-Set-up or Clean-up Assistance-helper sets up or cleans up; patient completes activity. [place] assists only prior to or following the activity. 4-Supervision or Touching Assistance-helper provides verbal cues and/or t ouching/steadying and/or contact guard assistance as patient completes activity. Assistance may be provided throughout the activity or intermittently. 3-Partial/Moderate Assistance-helper does LESS THAN HALF the effort. [place] lifts, holds or supports trunk or limbs, but provides less than half the effort. 2-Substantial/Maximal Assistance-helper does MORE THAN HALF the effort. [place] lifts or holds trunk or limbs and provides more than half the effort. 0-Dqldcalga-ypwbtn does ALL the effort. Patient does none of the effort to complete the activity. Or, the assistance of 2 or more helpers is required for the patient to complete the activity. If activity was not attempted, code reason: 7-Patient Refused. 9-Not Applicable-not attempted and the patient did not perform the activity before the current illness, exacerbation or injury. 10-Not Attempted due to Environmental Limitations-(lack of equipment, weather restraints, etc.). 88-Not Attempted due to Medical Conditions or Safety Concerns. Bed Mobility: 6 Transfers (B,C,W/C): 6 Gait: 6 Stairs: 6 Indoor Mobility (Ambulation): Independent Stairs: Independent Prior Devices Use: None PT Evaluation-Current Subjective Patient agrees to PT. Objective Patient Orientation: Normal For Age Attachments: NG Tube, IV ROM/Strength ROM Lower Extremities bilateral LE WFL Strength Lower Extremities 4/5 grossly bilateral LE Integumentary/Posture Bowel Incontinence: No Bladder Incontinence: No Posture WFL Neuromuscular (Tone, Coordination, Reflexes) grossly intact Sensory Vision: Functional Hearing: Functional Sensation Right Lower Extremit: Intact Sensation Left Lower Extremity: Intact Transfers Lying to Sitting/Side of Bed(Q: 4 Sit to Stand (QC): 4 Chair/Hyx-fy-Wssmo Xfer(QC): 4 Gait Mode of Locomotion: Walk Anticipated Mode of Locomotion: Walk Walk 10 feet (QC): 4 Walk 50 ft with 2 Turns(QC): 88 Walk 150 ft (QC): 88 Distance: 10' x 2 Gait Assistive Device: FWW Balance Sitting Static: Normal Sitting Dynamic: Normal Standing Static: Normal Standing Dynamic: Normal Assessment/Needs 77 y.o. female, will be seen short term by skilled PT to address functional mobility to ensure safe return to home at maximum LOF. Rehab Potential: Fair PT Tree Thinner Goals Tree Thinner Goals PT Alf Goals Time Frame: May 23, 2022 Roll Left & Right (QC): 6 Sit to Lying (QC): 6 Lying-Sitting on Side/Bed(QC): 6 Sit to Stand (QC): 6 Chair/Mhj-bn-Yveqr Xfer(QC): 6 Toilet Transfer (QC): 6 Walk 10 feet (QC): 6 Walk 50ft with 2 Turns (QC): 6 Walk 150 ft (QC): 6 PT Plan Problem List Problem List: Activity Tolerance Treatment/Plan Treatment Plan: Continue Plan of Care Treatment Plan: Education, Functional Activity Britni, Functional Strength, Gait, Safety, Therapeutic Exercise, Transfers Treatment Duration: May 23, 2022 Frequency: 5 times per week Estimated Hrs Per Day: .25 hour per day Patient and/or Family Agrees t: Yes Discharge Recommendations Therapy Discharge Recommendati: Home & Family Time/GCodes Time In: 746 Time Out: 801 Total Billed Treatment Time: 15 Total Billed Treatment 1 visit EVModC 15 min JNAES DELGADO PT May 19, 2022 10:47
[2022-05-19] MEDS ORDERED: ACET-2267 PO (10:58)
[2022-05-19] MEDS ORDERED: OMEG1CAP24 PO (10:58)
[2022-05-19] MEDS ORDERED: LACT1CAP62 PO (10:58)
[2022-05-19] MEDS ORDERED: BENA40TA84 PO (10:58)
[2022-05-19] MEDS ORDERED: MTP100TCR PO (10:58)
[2022-05-19] MEDS ORDERED: CARB15DR58 OP (10:58)
[2022-05-19] MEDS ORDERED: MULT-1136 PO (10:58)
[2022-05-19] MEDS ORDERED: AMLO-251 PO (10:58)
[2022-05-19] MEDS ORDERED: UBID100C17 PO (10:58)
[2022-05-19] MEDS ORDERED: meTOprolol 5 MG/5 ML (LOPRESSOR) VIAL IV PRN (12:30)
--- NOTE | 2022-05-19 13:19 | Anesthesia-General Post-Op ---
General Patient Condition Mental Status/LOC: Same as Preop Cardiovascular: Satisfactory Nausea/Vomiting: Absent Respiratory: Satisfactory Pain: Controlled Complications: Absent Post Op Complications Complications None Follow Up Care/Instructions Patient Instructions None needed. Anesthesia/Patient Condition Patient Condition Patient is doing well, no complaints, stable vital signs, no apparent adverse anesthesia problems. No complications reported per nursing. AZAR BURNS CRNA May 19, 2022 13:19
[2022-05-19] MEDS: ENOXAPARIN 40 MG/0.4 ML (LOVENOX) SYR SC SCH (13:52)
[2022-05-19] MEDS: LIDOCAINE 4% (SALONPAS) PATCH TOP SCH (13:53)
--- NOTE | 2022-05-19 18:25 | Consultation ---
History of Present Illness History of Present Illness Patient Consulted On(arnav/time) 05/19/22 18:20 Date Seen by Provider: May 19, 2022 Time Seen by Provider: 12:30 History of Present Illness This is a 77 year old female who was taken to surgery for a strangulated right femoral hernia. She is currently post-op with NG tube in place and pain control. I am asked to consult for medical management. I follow this patient routinely for hypertension. She also follows routinely with cardiology for aortic stenosis. Allergies and Home Medications Allergies Coded Allergies: Penicillins (Verified Allergy, Mild, 05/18/22) adhesive tape (Verified Allergy, Unknown, 05/18/22) latex (Verified Allergy, Unknown, 05/18/22) vancomycin (Verified Allergy, Unknown, 05/18/22) Patient Home Medication List Home Medication List Reviewed: Yes Acetaminophen (Tylenol Extra Strength) 500 Mg Tablet, 500-1,000 MG PO Q8H PRN for PAIN-MILD (1-4), (Reported) Entered as Reported by: JUICE HERNANDEZ on 05/19/221057 Last Action: Reviewed Amlodipine Besylate (Amlodipine Besylate) 10 Mg Tablet, 10 MG PO HS, (Reported) Entered as Reported by: JUICE HERNANDEZ on 05/19/221057 Last Action: Reviewed Benazepril HCl (Benazepril HCl) 40 Mg Tab, 40 MG PO DAILY, (Reported) Entered as Reported by: JUICE HERNANDEZ on 05/19/221057 Last Action: Reviewed Carboxymethylcellulose Sodium (Thera Tears) 0.25 % Drops, 2 DROPS OP UD PRN for DRY EYES, (Reported) Entered as Reported by: JUICE HERNANDEZ on 05/19/221057 Last Action: Reviewed Lactobacillus Acidophilus (Probiotic) 10 Billion Cell Capsule, 1 EACH PO DAILY, (Reported) Entered as Reported by: JUICE HERNANDEZ on 05/19/221057 Last Action: Reviewed Metoprolol Succinate (Metoprolol Succinate) 100 Mg Tab.er.24h, 100 MG PO BID, (Reported) Entered as Reported by: JUICE HERNANDEZ on 05/19/221057 Last Action: Reviewed Multivitamin (Multivitamin) 1 Each Tablet, 1 EACH PO DAILY, (Reported) Entered as Reported by: JUICE HERNANDEZ on 05/19/221057 Last Action: Reviewed Bryan-3 Fatty Acids/Fish Oil (Bryan 3 Fish Oil Softgel) 684 Mg-1,200 Mg Capsule.dr, 1 EACH PO DAILY, (Reported) Entered as Reported by: JUICE HERNANDEZ on 05/19/221057 Last Action: Reviewed Ubidecarenone (Coq-10) 100 Mg Capsule, 100 MG PO DAILY, (Reported) Entered as Reported by: JUICE HERNANDEZ on 05/19/221057 Last Action: Reviewed Discontinued Medications , (Reported) Discontinued Reason: No Longer Taking Entered as Reported by: ANTONIO SMILEY on 12/04/0942 Last Action: Discontinued [Benzapril] , (Reported) Discontinued Reason: No Longer Taking Entered as Reported by: ANTONIO SMILEY on 12/04/0943 Last Action: Discontinued Past Yjmdjcc-Ybeklj-Ephzrz Hx Patient Social History Employed/Student: retired Tobacco Use?: No Smoking Status: Never a Smoker Substance use?: No Alcohol Use?: No Pt feels they are or have been: No Immunizations Up To Date First/Initial COVID19 Vaccinat: YES Second COVID19 Vaccination Arnav: YES Current Status Advance Directives: No Primary Language: Lithuanian Preferred Spoken Language: Lithuanian Past Medical History Surgeries: Breast (Bilateral mastectomy and implants) Currently Using CPAP: No Currently Using BIPAP: No Hypertension, Rheumatic Fever, Valvular Heart Disease Arthritis Family Medical History No Pertinent Family Hx Review of Systems Review of Systems General: No Chills, No Night Sweats, No Fatigue, No Malaise, No Appetite, No Other HEENT: No Head Aches, No Visual Changes, No Eye Pain, No Ear Pain, No Dysphasia, No Sinus Congestion, No Post Nasal Drip, No Sore Throat, No Other Pulmonary: No Dyspnea, No Cough, No Pleuritic Chest Pain, No Other Cardiovascular: No: Chest Pain, Palpitations, Orthopnea, Paroxysmal Noc. Dyspnea, Edema, Lt Headedness, Other Gastrointestinal: Nausea, Vomiting, Abdominal Pain Genitourinary: No Dysuria, No Frequency, No Incontinence, No Hematuria, No Retention, No Other Musculoskeletal: back pain Neurological: No: Weakness, Numbness, Incoordination, Change in speech, Confusion, Seizures, Other All Other Systems Reviewed All Other Systems Reviewed: Yes (Negative excepted noted.) Physical Exam Vital Signs Vital Signs - First Documented 05/18/22 08:39 Temp 36.6 Pulse 98 Resp 16 B/P (MAP) 133/82 (99) Pulse Ox 95 Capillary Refill : Less Than 3 Seconds Height, Weight, BMI Height: '" Weight: lbs. oz. kg; 19.00 BMI Method:Stated General Appearance: Mild Distress HEENT: Other (NG tube in place) Respiratory: Lungs Clear Cardiovascular: Regular Rate, Rhythm, Systolic Murmur Gastrointestinal: Soft, Abnormal Bowel Sounds Rectal: Deferred Back: No CVA Tenderness Extremity: Non Tender, No Calf Tenderness, No Pedal Edema Neurologic/Psychiatric: Alert, Oriented x3 Skin: Warm/Dry Comments Laboratory Tests 05/19/22 05:30: White Blood Count 9.4, Red Blood Count 4.36, Hemoglobin 12.5, Hematocrit 38, Mean Corpuscular Volume 88, Mean Corpuscular Hemoglobin 29, Mean Corpuscular Hemoglobin Concent 33, Red Cell Distribution Width 12.5, Platelet Count 280, Mean Platelet Volume 10.4, Sodium Level 138, Potassium Level 3.6, Chloride Level 102, Carbon Dioxide Level 25, Anion Gap 11, Blood Urea Nitrogen 27H, Creatinine 1.17, Estimat Glomerular Filtration Rate 48, BUN/Creatinine Ratio 23, Glucose Level 105, Calcium Level 8.5, Corrected Calcium 9.1, Total Bilirubin 1.3H, Aspartate Amino Transf (AST/SGOT) 20, Alanine Aminotransferase (ALT/SGPT) 15, Alkaline Phosphatase 54, Total Protein 5.9L, Albumin 3.2 Microbiology 05/18/22 Urine Culture - Final, Complete Mixed Bacterial Radha Assessment/Plan Assessment/Plan Admission Dx 1. Strangulated Right Femoral Hernia--S/P open repair with removal of loop of small bowel by Dr. Anaya, NG tube in place, pain control, IS, start lovenox for DVT prophylaxis and on protonix for GI prophylaxis 2. Hypertension--will given lopressor IV prn until able to take po meds 3. Aortic Stenosis--stable 4. Acute on Chronic Renal Insufficiency--BUN/Cr improved today to 27/1.17 5. Low Back Pain/Osteoarthritis--will start lidocaine patches to back ZHEN ESCOBAR DO May 19, 2022 18:25
[2022-05-19] MEDS: LIDOCAINE PATCH REMOVAL TP SCH (21:49)
[2022-05-20 03:52] VITALS: BP 147/74
[2022-05-20] MEDS: LACTATED RINGERS 1,000 ML IV SCH ×3 (04:24→23:48)
[2022-05-20 06:23] LABS: HEMATOCRIT 37 % (35-52); MEAN CORPUSCULAR HEMOGLOBIN 29 pg (25-34); MEAN CORPUSCULAR HGB CONC 32 g/dL (32-36); MEAN CORPUSCULAR VOLUME 90 fL (80-99); MEAN PLATELET VOLUME 10.9 fL (9.0-12.2); PLATELET COUNT 276 10^3/uL (130-400); WHITE BLOOD COUNT 9.3 10^3/uL (4.3-11.0)
[2022-05-20 06:40] LABS: ALBUMIN 3.2 GM/DL (3.2-4.5)
[2022-05-20 06:41] LABS: POTASSIUM 3.8 MMOL/L (3.6-5.0)
[2022-05-20 06:42] LABS: CALCIUM 8.9 MG/DL (8.5-10.1)
[2022-05-20 06:43] LABS: TOTAL PROTEIN 6.2 GM/DL (6.4-8.2)
[2022-05-20 06:45] LABS: BILIRUBIN,TOTAL 1.4 MG/DL (0.1-1.0)
[2022-05-20 06:47] LABS: CREATININE SERUM 0.87 MG/DL (0.60-1.30)
[2022-05-20 07:31] VITALS: BP 150/73
[2022-05-20] MEDS: PANTOPRAZOLE 40 MG (PROTONIX) VIAL IV SCH (07:37)
[2022-05-20] MEDS: LIDOCAINE 4% (SALONPAS) PATCH TOP SCH (07:37)
--- NOTE | 2022-05-20 08:27 | Physical Therapy Daily Note ---
PT Daily Note-Current Subjective Pt. in bed agrees to Rx, requests to get up to use commode. Pt. also comments that her NG tube in "full and not moving" "look at all that bile". Nursing was alerted to this Pain Location: No Pain Reported Mental Status Patient Orientation: Normal For Age Attachments: NG Tube, IV Transfers SCALE: Activities may be completed with or without assistive devices. 0-Fazamvntyk-qbsomsi completes the activity by him/herself with no assistance from a helper. 5-Set-up or Clean-up Assistance-helper sets up or cleans up; patient completes activity. [place] assists only prior to or following the activity. 4-Supervision or Touching Assistance-helper provides verbal cues and/or touching/steadying and/or contact guard assistance as patient completes activity. Assistance may be provided throughout the activity or intermittently. 3-Partial/Moderate Assistance-helper does LESS THAN HALF the effort. [place] lifts, holds or supports trunk or limbs, but provides less than half the effort. 2-Substantial/Maximal Assistance-helper does MORE THAN HALF the effort. [place] lifts or holds trunk or limbs and provides more than half the effort. 0-Wuvbiwmjy-knfofy does ALL the effort. Patient does none of the effort to complete the activity. Or, the assistance of 2 or more helpers is required for the patient to complete the activity. If activity was not attempted, code reason: 7-Patient Refused. 9-Not Applicable-not attempted and the patient did not perform the activity before the current illness, exacerbation or injury. 10-Not Attempted due to Environmental Limitations-(lack of equipment, weather restraints, etc.). 88-Not Attempted due to Medical Conditions or Safety Concerns. Roll Left & Right (QC): 6 Lying to Sitting/Side of Bed(Q: 6 Sit to Stand (QC): 6 Chair/Vat-af-Vrcqk Xfer(QC): 4 Toilet Transfer (QC): 6 Weight Bearing Right Lower Extremity: Right Weight Bearing/Tolerated Left Lower Extremity: Left Weight Bearing/Tolerated Gait Training Does the Patient Walk?: Yes Gait Assistive Device: FWW 5-6 ft x 2 as NG tubing would allow, tubing full and stagnant , nursing alerted, not comfortable to take pt. off suction as tube is very heavy and full, unsure if this is indicative of how much NG output pt is currently having etc. Exercises Supine Ex: Bridging, Quad Set, Rolling, Glut sets, Heel Slides, Straight leg raise Supine Reps: 12 Seated Therapy Exercises: Ankle pumps, Sit to stand, Long arc quads, Hip flexion Seated Reps: 12 Standing: Hip Abduction, Heel/toe raises, Marching, Mini squats (x5) Standing Reps: 12 Treatments bed and chair TRFs, short gait, pregait ex Assessment Current Status: Good Progress will progress well with gait after NG output allows PT Usp Goals Usp Goals PT Usp Goals Time Frame: May 23, 2022 Roll Left & Right (QC): 6 Sit to Lying (QC): 6 Lying-Sitting on Side/Bed(QC): 6 Sit to Stand (QC): 6 Chair/Gyj-pr-Tlxbc Xfer(QC): 6 Toilet Transfer (QC): 6 Walk 10 feet (QC): 6 Walk 50ft with 2 Turns (QC): 6 Walk 150 ft (QC): 6 PT Plan Treatment/Plan Treatment Plan: Continue Plan of Care Treatment Plan: Education, Functional Activity Britni, Functional Strength, Gait, Safety, Therapeutic Exercise, Transfers Treatment Duration: May 23, 2022 Frequency: 5 times per week Estimated Hrs Per Day: .25 hour per day Patient and/or Family Agrees t: Yes Safety Risks/Education Patient Education: Gait Training, Transfer Techniques, Correct Positioning, Disease Process Teaching Recipient: Patient Teaching Methods: Demonstration, Discussion Response to Teaching: Verbalize Understanding, Return Demonstration, Reinforcement Needed Time/GCodes Time In: 750 Time Out: 820 Total Billed Treatment Time: 30 Total Billed Treatment 1,FA10m,EX20m ANYI KELLY REGULATORY AND COMPLIANCE TECHNICIAN May 20, 2022 08:27
[2022-05-20 11:12] VITALS: BP 155/72
[2022-05-20] MEDS: LIDOCAINE PATCH REMOVAL TP SCH (12:19)
[2022-05-20] MEDS: ENOXAPARIN 40 MG/0.4 ML (LOVENOX) SYR SC SCH (13:23)
[2022-05-20 16:13] VITALS: BP 152/70
--- NOTE | 2022-05-20 17:15 | Progress Note ---
Subjective Date Seen by a Provider: May 20, 2022 Time Seen by a Provider: 13:00 Subjective/Events-last exam Fwup right strangulated femoral hernia--S/P small intestine resection and hernia repair, HTN, acute on chronic renal insufficiency. NG tube still in place. Still no flatus. Pain well controlled. Doing IS. Sitting up in chair. Objective Exam Vital Signs Date Time Temp Pulse Resp B/P (MAP) Pulse Ox O2 Delivery O2 Flow Rate FiO2 05/20/22 16:13 36.5 90 20 152/70 (97) 95 Room Air 05/20/22 11:12 37.0 91 18 155/72 (99) 94 Room Air 05/20/22 08:42 Room Air 05/20/22 07:31 37.6 84 18 150/73 (98) 92 Room Air 05/20/22 03:52 36.5 91 20 147/74 (98) 94 Room Air 05/19/22 23:15 37.0 96 20 131/68 (89) 96 Room Air 05/19/22 21:00 Room Air 05/19/22 19:25 36.9 92 20 153/77 (102) 92 Room Air I & O 05/20/22 07:00 Intake Total 2050 ml Output Total 600 ml Balance 1450 ml Capillary Refill : Less Than 3 Seconds General Appearance: No Apparent Distress Respiratory: Crackles (left base), Decreased Breath Sounds Cardiovascular: Regular Rate, Rhythm Gastrointestinal: non tender, soft, abnormal bowel sounds (absent) Extremity: Non Tender, No Calf Tenderness, No Pedal Edema Skin: Warm/Dry, Other (khanh in place with no erythema around wounds or drainage) Results Lab Laboratory Tests 05/20/22 05:27: White Blood Count 9.3, Red Blood Count 4.14, Hemoglobin 12.0, Hematocrit 37, Mean Corpuscular Volume 90, Mean Corpuscular Hemoglobin 29, Mean Corpuscular Hemoglobin Concent 32, Red Cell Distribution Width 12.5, Platelet Count 276, M isabel Platelet Volume 10.9, Sodium Level 140, Potassium Level 3.8, Chloride Level 100, Carbon Dioxide Level 23, Anion Gap 17H, Blood Urea Nitrogen 18, Creatinine 0.87, Estimat Glomerular Filtration Rate 68, BUN/Creatinine Ratio 21, Glucose Level 73, Calcium Level 8.9, Corrected Calcium 9.5, Total Bilirubin 1.4H, Aspartate Amino Transf (AST/SGOT) 17, Alanine Aminotransferase (ALT/SGPT) 14, Alkaline Phosphatase 62, Total Protein 6.2L, Albumin 3.2 Microbiology 05/18/22 Urine Culture - Final, Complete Mixed Bacterial Radha Assessment/Plan Assessment/Plan Assess & Plan/Chief Complaint 1. Right Strangulated Femoral Hernia--S/P small intestine resection and repair, pain control/IS/lovenox for DVT prophylaxis/protonix for GI prophylaxis, increase activity, NG tube still in place--on ice chips 2. Hypertension--lopressor IV prn 3. Acute on Chronic Renal Insufficiency--BUN/Cr stable 4. Left Basilar Crackles--patient will focus on IS and get up to ambulate Clinical Quality Measures Admission Status Admission Dx 1. Strangulated Right Femoral Hernia--S/P open repair with removal of loop of small bowel by Dr. Anaya, NG tube in place, pain control, IS, start lovenox for DVT prophylaxis and on protonix for GI prophylaxis 2. Hypertension--will given lopressor IV prn until able to take po meds 3. Aortic Stenosis--stable 4. Acute on Chronic Renal Insufficiency--BUN/Cr improved today to 27.17 5. Low Back Pain/Osteoarthritis--will start lidocaine patches to back ZHEN ESCOBAR DO May 20, 2022 17:15
[2022-05-20 19:58] VITALS: BP 147/79
[2022-05-21 00:53] VITALS: BP 158/78
[2022-05-21 03:52] VITALS: BP 158/74
[2022-05-21 05:23] LABS: HEMATOCRIT 36 % (35-52); HEMOGLOBIN 11.8 g/dL (11.5-16.0); MEAN CORPUSCULAR HEMOGLOBIN 29 pg (25-34); MEAN CORPUSCULAR HGB CONC 33 g/dL (32-36); MEAN CORPUSCULAR VOLUME 88 fL (80-99); MEAN PLATELET VOLUME 10.2 fL (9.0-12.2); PLATELET COUNT 288 10^3/uL (130-400); WHITE BLOOD COUNT 9.3 10^3/uL (4.3-11.0)
[2022-05-21 05:30] LABS: ALBUMIN 3.2 GM/DL (3.2-4.5)
[2022-05-21 05:31] LABS: POTASSIUM 3.6 MMOL/L (3.6-5.0)
[2022-05-21 05:32] LABS: CALCIUM 8.9 MG/DL (8.5-10.1)
[2022-05-21 05:33] LABS: TOTAL PROTEIN 6.2 GM/DL (6.4-8.2)
[2022-05-21 05:35] LABS: BILIRUBIN,TOTAL 1.2 MG/DL (0.1-1.0)
[2022-05-21 05:37] LABS: CREATININE SERUM 0.76 MG/DL (0.60-1.30)
[2022-05-21] MEDS: ONDANSETRON 4 MG/2 ML (SDV) Z0FRAN IV PRN ×2 (05:37→08:47)
[2022-05-21 07:45] VITALS: BP 157/74
--- NOTE | 2022-05-21 07:54 | Progress Note - Surgery ---
DESTINY ONEAL Shantanu 05/21/22 0754: Subjective Date Seen by a Provider: May 21, 2022 Time Seen by a Provider: 07:01 Subjective/Events-last exam Ms. Cochran is POD #3 after open right strangulated femoral hernia repair with small bowel resection. This morning she reports she is feeling well with no pain at rest. Her pain is a 2/10 with ambulation. She reports a solid bowel movement early this morning. She has minor tenderness around her incisions. She has minor nausea controlled with medicine. She is using her ICS > 10 times an hour. She had multiple questions about her surgery and what was done so I spent time answering those to her satisfaction. She is NPO. Review of Systems General: No Chills, No Fatigue HEENT: No Head Aches, No Visual Changes Pulmonary: No Dyspnea, No Cough Cardiovascular: No: Chest Pain, Palpitations Gastrointestinal: Nausea; No: Vomiting Neurological: No: Weakness, Confusion Objective Exam Vital Signs Date Time Temp Pulse Resp B/P (MAP) Pulse Ox O2 Delivery O2 Flow Rate FiO2 05/21/22 07:45 36.9 88 18 157/74 (101) 92 Room Air 05/21/22 03:52 37.1 76 18 158/74 (102) 91 Room Air 05/21/22 00:53 37.2 94 18 158/78 (104) 94 Room Air 05/20/22 20:45 Room Air 05/20/22 19:58 36.5 83 20 147/79 (101) 94 Room Air 05/20/22 16:13 36.5 90 20 152/70 (97) 95 Room Air 05/20/22 11:12 37.0 91 18 155/72 (99) 94 Room Air 05/20/22 08:42 Room Air I & O 05/21/22 07:00 Intake Total 1565 ml Output Total 1600 ml Balance -35 ml Capillary Refill : Less Than 3 Seconds General Appearance: No Apparent Distress, WD/WN HEENT: PERRL/EOMI, Moist Mucous Membranes, Other (NG tube in place) Neck: Non Tender, Supple Respiratory: Lungs Clear (Anterior upper lobes only), No Accessory Muscle Use, No Respiratory Distress Cardiovascular: Regular Rate, Rhythm, Normal Peripheral Pulses Peripheral Pulses: 2+ Radial Pulses (R), 2+ Radial Pulses (L) Gastrointestinal: non tender, soft, distended (Very minor), other (Incisions closed with khanh. No erythema or drainage.) Extremity: Non Tender, No Pedal Edema Neurologic/Psychiatric: Alert, Oriented x3 Skin: Normal Color, Warm/Dry Results Lab Laboratory Tests 05/21/22 05:00: White Blood Count 9.3, Red Blood Count 4.03, Hemoglobin 11.8, Hematocrit 36, Mean Corpuscular Volume 88, Mean Corpuscular Hemoglobin 29, Mean Corpuscular Hemoglobin Concent 33, Red Cell Distribution Width 12.0, Platelet Count 288, Mean Platelet Volume 10.2, Sodium Level 137, Potassium Level 3.6, Chloride Level 99, Carbon Dioxide Level 22, Anion Gap 16H, Blood Urea Nitrogen 14, Creatinine 0.76, Estimat Glomerular Filtration Rate 80, BUN/Creatinine Ratio 18, Glucose Level 79, Calcium Level 8.9, Corrected Calcium 9.5, Total Bilirubin 1.2H, Aspartate Amino Transf (AST/SGOT) 17, Alanine Aminotransferase (ALT/SGPT) 13, Alkaline Phosphatase 58, Total Protein 6.2L, Albumin 3.2 Microbiology 05/18/22 Urine Culture - Final, Complete Mixed Bacterial Radha Assessment/Plan Assessment/Plan Assessment/Plan Right inguinal incarcerated hernia POD #3 Small bowel obstruction Bowel movement this morning S/p strangulated right femoral primary hernia repair and small bowel resection Continue IVF DVT prophylaxis, GI prophylaxis Encourage ICS NPO NG tube in, not hooked to suction Advance diet as tolerated today KEMI ANAYA DO 05/21/22 1551: Subjective Subjective/Events-last exam small bm htis morning . became more nauseated and had emesis. pain controlled. Ambulating and using IS. No other complaints. NPO. NG tube came out and had to be replaced today. Objective Exam General Appearance: No Apparent Distress, WD/WN HEENT: PERRL/EOMI Neck: Non Tender, Supple Respiratory: Chest Non Tender, No Accessory Muscle Use, No Respiratory Distress Cardiovascular: Regular Rate, Rhythm, No JVD Gastrointestinal: non tender, soft, distended (minimal), other (Incisions closed with khanh. No erythema or drainage.) Extremity: Non Tender, No Calf Tenderness Neurologic/Psychiatric: Alert, Oriented x3 Skin: Normal Color, Warm/Dry Lymphatic: No Adenopathy Assessment/Plan Assessment/Plan Assessment/Plan Right femoral strangulated hernia Small bowel obstruction S/p strangulated right femoral primary hernia repair and small bowel resection Continue IVF DVT prophylaxis, GI prophylaxis ambulating at least TID greater than 100 ft Encourage ICS NPO Await bowel function NG tube to LIWS Supervisory-Addendum Brief Verification & Attestation Participated in pt care: history, MDM, physical Personally performed: exam, history, MDM, supervision of care Care discussed with: Medical Student Procedures: n/a Results interpretation: Verified all documentation Verification and Attestation of Medical Student E/M Service A medical student performed and documented this service in my presence. I reviewed and verified all information documented by the medical student and made modifications to such information, when appropriate. I personally performed the physical exam and medical decision making. Kemi Anaya, May 21, 2022,15:51 DESTINY ONEAL May 21, 2022 07:54 KEMI ANAYA DO May 21, 2022 15:51
--- NOTE | 2022-05-21 08:06 | Progress Note - Surgery ---
Subjective Date Seen by a Provider: May 20, 2022 Time Seen by a Provider: 13:00 Subjective/Events-last exam Patient no flatus of bm. NG tube to wall suction. Pain controlled. Denies n/v fever sweats chills shortness of breath or chest pain. Objective Exam Vital Signs Date Time Temp Pulse Resp B/P (MAP) Pulse Ox O2 Delivery O2 Flow Rate FiO2 05/21/22 07:45 36.9 88 18 157/74 (101) 92 Room Air 05/21/22 03:52 37.1 76 18 158/74 (102) 91 Room Air 05/21/22 00:53 37.2 94 18 158/78 (104) 94 Room Air 05/20/22 20:45 Room Air 05/20/22 19:58 36.5 83 20 147/79 (101) 94 Room Air 05/20/22 16:13 36.5 90 20 152/70 (97) 95 Room Air 05/20/22 11:12 37.0 91 18 155/72 (99) 94 Room Air 05/20/22 08:42 Room Air I & O 05/21/22 07:00 Intake Total 1565 ml Output Total 1600 ml Balance -35 ml Capillary Refill : Less Than 3 Seconds General Appearance: No Apparent Distress, WD/WN HEENT: PERRL/EOMI, Normal ENT Inspection, Moist Mucous Membranes, Other (NG tube in place) Neck: Non Tender, Supple Respiratory: Chest Non Tender, No Accessory Muscle Use, No Respiratory Distress Cardiovascular: Regular Rate, Rhythm, No JVD, Normal Peripheral Pulses Peripheral Pulses: 2+ Radial Pulses (R), 2+ Radial Pulses (L) Gastrointestinal: soft, distended (minimal), other (Incisions closed with khanh. No erythema or drainage. c/d/i) Extremity: Non Tender, No Pedal Edema Neurologic/Psychiatric: Alert, Oriented x3 Skin: Normal Color, Warm/Dry Lymphatic: No Adenopathy Results Lab Laboratory Tests 05/21/22 05:00: White Blood Count 9.3, Red Blood Count 4.03, Hemoglobin 11.8, Hematocrit 36, Mean Corpuscular Volume 88, Mean Corpuscular Hemoglobin 29, Mean Corpuscular Hemoglobin Concent 33, Red Cell Distribution Width 12.0, Platelet Count 288, Mean Platelet Volume 10.2, Sodium Level 137, Potassium Level 3.6, Chloride Level 99, Carbon Dioxide Level 22, Anion Gap 16H, Blood Urea Nitrogen 14, Creatinine 0.76, Estimat Glomerular Filtration Rate 80, BUN/Creatinine Ratio 18, Glucose Level 79, Calcium Level 8.9, Corrected Calcium 9.5, Total Bilirubin 1.2H, Aspartate Amino Transf (AST/SGOT) 17, Alanine Aminotransferase (ALT/SGPT) 13, Alkaline Phosphatase 58, Total Protein 6.2L, Albumin 3.2 Microbiology 05/18/22 Urine Culture - Final, Complete Mixed Bacterial Radha Assessment/Plan Assessment/Plan Assessment/Plan Right femoral strangulated hernia Small bowel obstruction S/p strangulated right femoral primary hernia repair and small bowel resection Continue IVF DVT prophylaxis, GI prophylaxis Encourage ICS NPO Await bowel function NG tube in,will clamp KEMI ÁLVAREZ DO May 21, 2022 08:06
[2022-05-21] MEDS: PANTOPRAZOLE 40 MG (PROTONIX) VIAL IV SCH (08:47)
[2022-05-21] MEDS: LIDOCAINE 4% (SALONPAS) PATCH TOP SCH (08:51)
--- NOTE | 2022-05-21 09:37 | Physical Therapy Daily Note ---
PT Daily Note-Current Subjective Patient reports frustration due to NG tube came out. RN in to replace. Patient agrees to PT. Mental Status Patient Orientation: Normal For Age Attachments: NG Tube, IV Transfers SCALE: Activities may be completed with or without assistive devices. 9-Azavpiiish-iawrbnm completes the activity by him/herself with no assistance from a helper. 5-Set-up or Clean-up Assistance-helper sets up or cleans up; patient completes activity. Golden assists only prior to or following the activity. 4-Supervision or Touching Assistance-helper provides verbal cues and/or touching/steadying and/or contact guard assistance as patient completes activity. Assistance may be provided throughout the activity or intermittently. 3-Partial/Moderate Assistance-helper does LESS THAN HALF the effort. Golden lifts, holds or supports trunk or limbs, but provides less than half the effort. 2-Substantial/Maximal Assistance-helper does MORE THAN HALF the effort. Golden lifts or holds trunk or limbs and provides more than half the effort. 9-Rpvtocbln-ugailb does ALL the effort. Patient does none of the effort to complete the activity. Or, the assistance of 2 or more helpers is required for the patient to complete the activity. If activity was not attempted, code reason: 7-Patient Refused. 9-Not Applicable-not attempted and the patient did not perform the activity before the current illness, exacerbation or injury. 10-Not Attempted due to Environmental Limitations-(lack of equipment, weather restraints, etc.). 88-Not Attempted due to Medical Conditions or Safety Concerns. Sit to Lying (QC): 6 Lying to Sitting/Side of Bed(Q: 6 Sit to Stand (QC): 6 Weight Bearing Right Lower Extremity: Right Weight Bearing/Tolerated Left Lower Extremity: Left Weight Bearing/Tolerated Gait Training Distance: 500' Walk 10 feet (QC): 5 Walk 50 ft with 2 Turns(QC): 5 Walk 150 ft (QC): 5 Gait Assistive Device: FWW safe and functional with no deviation (FWW utilized for energy conservation and comfort due to abdominal pressure) Assessment Patient to be seen x 1 more session tomorrow. Patient tolerated treatment well and returned to bed. PT Machinist Brake Goals Machinist Brake Goals PT Machinist Brake Goals Time Frame: May 23, 2022 Roll Left & Right (QC): 6 Sit to Lying (QC): 6 Lying-Sitting on Side/Bed(QC): 6 Sit to Stand (QC): 6 Chair/Ydn-mw-Huxhz Xfer(QC): 6 Toilet Transfer (QC): 6 Walk 10 feet (QC): 6 Walk 50ft with 2 Turns (QC): 6 Walk 150 ft (QC): 6 PT Plan Treatment/Plan Treatment Plan: Continue Plan of Care Treatment Plan: Education, Functional Activity Britni, Functional Strength, Gait, Safety, Therapeutic Exercise, Transfers Treatment Duration: May 23, 2022 Frequency: 5 times per week Estimated Hrs Per Day: .25 hour per day Patient and/or Family Agrees t: Yes Time/GCodes Time In: 911 Time Out: 921 Total Billed Treatment Time: 10 Total Billed Treatment 1 visit FA 10 min JANES DELGADO PT May 21, 2022 09:37
--- NOTE | 2022-05-21 09:53 | Diagnostic Imaging Report ---
INDICATION: Nasogastric tube evaluation Single AP view of the chest reveals nasogastric tube passing below the diaphragm with tip projecting over the mid stomach. There is mild basilar atelectasis, greater on the left. No pneumothorax or consolidation is identified. IMPRESSION: Mild basilar atelectasis, greater on the left. Dictated by: Dictated on workstation # [id number]
[2022-05-21] MEDS: LACTATED RINGERS 1,000 ML IV SCH ×2 (10:22→20:30)
[2022-05-21 11:13] VITALS: BP 154/74
[2022-05-21] MEDS: ENOXAPARIN 40 MG/0.4 ML (LOVENOX) SYR SC SCH (12:10)
[2022-05-21 16:16] VITALS: BP 174/72
--- NOTE | 2022-05-21 18:53 | Progress Note ---
Subjective Date Seen by a Provider: May 21, 2022 Time Seen by a Provider: 18:51 Subjective/Events-last exam Fwup right strangulated femoral hernia--S/P small intestine resection and hernia repair, HTN, acute on chronic renal insufficiency. Had small BM this morning but NG tube also had to be replaced because was backing up into her nose and mouth. Objective Exam Vital Signs Date Time Temp Pulse Resp B/P (MAP) Pulse Ox O2 Delivery O2 Flow Rate FiO2 05/21/22 16:16 36.7 80 20 174/72 (106) 94 Room Air 05/21/22 11:13 36.5 90 18 154/74 (100) 94 Room Air 05/21/22 09:32 Room Air 05/21/22 07:45 36.9 88 18 157/74 (101) 92 Room Air 05/21/22 03:52 37.1 76 18 158/74 (102) 91 Room Air 05/21/22 00:53 37.2 94 18 158/78 (104) 94 Room Air 05/20/22 20:45 Room Air 05/20/22 19:58 36.5 83 20 147/79 (101) 94 Room Air I & O 05/21/22 07:00 Intake Total 1565 ml Output Total 1600 ml Balance -35 ml Capillary Refill : Less Than 3 Seconds General Appearance: No Apparent Distress Respiratory: Lungs Clear, Decreased Breath Sounds Cardiovascular: Regular Rate, Rhythm Gastrointestinal: non tender, soft, abnormal bowel sounds (hypoactive but does have bowel sounds today) Extremity: Non Tender, No Calf Tenderness, No Pedal Edema Neurologic/Psychiatric: Alert, Oriented x3 Skin: Warm/Dry, Other (right groin and midline incisions with khanh in place and no erythema and no drainage) Results Lab Laboratory Tests 05/21/22 05:00: White Blood Count 9.3, Red Blood Count 4.03, Hemoglobin 11.8, Hematocrit 36, Mean Corpuscular Volume 88, Mean Corpuscular Hemoglobin 29, Mean Corpuscular Hemoglobin Concent 33, Red Cell Distribution Width 12.0, Platelet Count 288, Mean Platelet Volume 10.2, Sodium Level 137, Potassium Level 3.6, Chloride Level 99, Carbon Dioxide Level 22, Anion Gap 16H, Blood Urea Nitrogen 14, Creatinine 0.76, Estimat Glomerular Filtration Rate 80, BUN/Creatinine Ratio 18, Glucose Level 79, Calcium Level 8.9, Corrected Calcium 9.5, Total Bilirubin 1.2H, Aspartate Amino Transf (AST/SGOT) 17, Alanine Aminotransferase (ALT/SGPT) 13, Alkaline Phosphatase 58, Total Protein 6.2L, Albumin 3.2 Microbiology 05/18/22 Urine Culture - Final, Complete Mixed Bacterial Radha Assessment/Plan Assessment/Plan Assess & Plan/Chief Complaint 1. Right Strangulated Femoral Hernia--S/P small intestine resection and repair, pain control/IS/lovenox for DVT prophylaxis/protonix for GI prophylaxis, increase activity, NG tube still in place but did pass small BM this morning 2. Hypertension--lopressor IV prn 3. Acute on Chronic Renal Insufficiency--BUN/Cr stable 4. Left Basilar Crackles--CXR shows atelectesis--continue IS and up to chair and ambulate Clinical Quality Measures Admission Status Admission Dx 1. Strangulated Right Femoral Hernia--S/P open repair with removal of loop of small bowel by Dr. Anaya, NG tube in place, pain control, IS, start lovenox for DVT prophylaxis and on protonix for GI prophylaxis 2. Hypertension--will given lopressor IV prn until able to take po meds 3. Aortic Stenosis--stable 4. Acute on Chronic Renal Insufficiency--BUN/Cr improved today to 27/1.17 5. Low Back Pain/Osteoarthritis--will start lidocaine patches to back ZHEN ESCOBAR DO May 21, 2022 18:53
[2022-05-21 19:19] VITALS: BP 157/73
[2022-05-21] MEDS: LIDOCAINE PATCH REMOVAL TP SCH ×2 (20:37→20:38)
[2022-05-22] VITALS (7 sets, daily range): BP systolic 139–168; BP diastolic 63–76
[2022-05-22 05:33] LABS: HEMATOCRIT 34 % (35-52); HEMOGLOBIN 11.2 g/dL (11.5-16.0); MEAN CORPUSCULAR HEMOGLOBIN 29 pg (25-34); MEAN CORPUSCULAR HGB CONC 33 g/dL (32-36); MEAN CORPUSCULAR VOLUME 89 fL (80-99); MEAN PLATELET VOLUME 10.2 fL (9.0-12.2); PLATELET COUNT 298 10^3/uL (130-400); WHITE BLOOD COUNT 9.8 10^3/uL (4.3-11.0)
[2022-05-22] MEDS: LACTATED RINGERS 1,000 ML IV SCH ×2 (06:39→17:03)
--- NOTE | 2022-05-22 08:43 | Progress Note - Surgery ---
DESTINY ONEAL Shantanu 05/22/22 0843: Subjective Date Seen by a Provider: May 22, 2022 Time Seen by a Provider: 07:26 Subjective/Events-last exam Ms. Cochran is POD #4 after open right strangulated femoral hernia repair with small bowel resection. This morning she reports she is feeling well with no pain at rest. She has minor pain with ambulation. She is having flatus but no bowel movements. Yesterday her NG tube came out and another NG tube was placed; she says it is uncomfortable but they did a good job placing it. It is hooked to suction with continuous, dark-green output. She is using her ICS. She has no other complaints or concerns. Review of Systems General: No Chills, No Fatigue HEENT: No Head Aches, No Visual Changes Pulmonary: No Dyspnea, No Cough Cardiovascular: No: Chest Pain, Palpitations Gastrointestinal: Nausea, Vomiting, Abdominal Pain Neurological: No: Weakness, Confusion Objective Exam Vital Signs Date Time Temp Pulse Resp B/P (MAP) Pulse Ox O2 Delivery O2 Flow Rate FiO2 05/22/22 08:13 36.9 68 18 162/68 (99) 93 Room Air 05/22/22 03:57 37.1 74 16 139/66 (90) 93 Room Air 05/22/22 00:01 37.5 74 16 168/72 (104) 95 Room Air 05/21/22 20:00 92 Room Air 05/21/22 19:19 36.8 87 18 157/73 (101) 92 Room Air 05/21/22 16:16 36.7 80 20 174/72 (106) 94 Room Air 05/21/22 11:13 36.5 90 18 154/74 (100) 94 Room Air 05/21/22 09:32 Room Air I & O 05/22/22 06:59 Intake Total 1000 ml Output Total 2500 ml Balance -1500 ml Capillary Refill : Less Than 3 Seconds General Appearance: No Apparent Distress, WD/WN HEENT: PERRL/EOMI, Moist Mucous Membranes Neck: Non Tender, Supple Respiratory: Lungs Clear, Normal Breath Sounds (Anterior posts only), No Accessory Muscle Use, No Respiratory Distress Cardiovascular: Regular Rate, Rhythm, Normal Peripheral Pulses Peripheral Pulses: 2+ Radial Pulses (R), 2+ Radial Pulses (L) Gastrointestinal: soft, distended (Very minor, softer today), tenderness (Very minor tenderness to palpation), other (Incisions closed with khanh, no erythema or drainage.) Extremity: Non Tender, No Pedal Edema Neurologic/Psychiatric: Alert, Oriented x3 Skin: Warm/Dry, Other (right groin and midline incisions with khanh in place and no erythema and no drainage) Results Lab Laboratory Tests 05/22/22 05:20: White Blood Count 9.8, Red Blood Count 3.86, Hemoglobin 11.2L, Hematocrit 34L, Mean Corpuscular Volume 89, Mean Corpuscular Hemoglobin 29, Mean Corpuscular Hem oglobin Concent 33, Red Cell Distribution Width 11.9, Platelet Count 298, Mean Platelet Volume 10.2 Microbiology 05/18/22 Urine Culture - Final, Complete Mixed Bacterial Radha Assessment/Plan Assessment/Plan Assessment/Plan Right femoral strangulated hernia Small bowel obstruction Flatus without bowel movement NG tube with 300 mL of dark green output S/p strangulated right femoral primary hernia repair and small bowel resection Continue IVF DVT prophylaxis, GI prophylaxis ambulating at least TID greater than 100 ft Encourage ICS NPO Await bowel function NG tube to KEMI MORALES DO 05/22/22 1359: Subjective Subjective/Events-last exam Having flatus. Pain controlled. Accidentally pulled ng tube this morning. Denies n/v fever sweats chills shortness of breath or chest pain at this time. Objective Exam General Appearance: No Apparent Distress, WD/WN HEENT: PERRL/EOMI, Normal ENT Inspection Neck: Non Tender, Supple Respiratory: Chest Non Tender, No Accessory Muscle Use, No Respiratory Distress Cardiovascular: Regular Rate, Rhythm, No JVD Gastrointestinal: soft, tenderness (min incisional), other (Incisions closed with khanh, no erythema or drainage.) Extremity: Non Tender, No Pedal Edema Neurologic/Psychiatric: Alert, Oriented x3 Skin: Normal Color, Warm/Dry, Other (right groin and midline incisions with khanh in place and no erythema and no drainage) Lymphatic: No Adenopathy Assessment/Plan Assessment/Plan Assessment/Plan Right femoral strangulated hernia Small bowel obstruction Flatus without bowel movement NG tube out S/p strangulated right femoral primary hernia repair and small bowel resection Continue IVF DVT prophylaxis, GI prophylaxis ambulating at least TID greater than 100 ft Encourage IS NPO- Start clears since melissa Supervisory-Addendum Brief Verification & Attestation Participated in pt care: history, MDM, physical Personally performed: exam, history, MDM, supervision of care Care discussed with: Medical Student Procedures: n/a Results interpretation: Verified all documentation Verification and Attestation of Medical Student E/M Service A medical student performed and documented this service in my presence. I reviewed and verified all information documented by the medical student and made modifications to such information, when appropriate. I personally performed the physical exam and medical decision making. Kemi Álvarez, May 22, 2022,13:59 DESTINY ONEAL May 22, 2022 08:43 KEMI ÁLVAREZ DO May 22, 2022 13:59
[2022-05-22] MEDS: LIDOCAINE 4% (SALONPAS) PATCH TOP SCH (09:28)
[2022-05-22] MEDS: PANTOPRAZOLE 40 MG (PROTONIX) VIAL IV SCH (09:29)
--- NOTE | 2022-05-22 10:55 | Physical Therapy Daily Note ---
PT Daily Note-Current Subjective Patient agrees to PT. Patient reports she pulled her NG tube out again. Mental Status Patient Orientation: Normal For Age Attachments: IV Transfers SCALE: Activities may be completed with or without assistive devices. 8-Ohcqrczchr-lvrhvwb completes the activity by him/herself with no assistance from a helper. 5-Set-up or Clean-up Assistance-helper sets up or cleans up; patient completes activity. [place] assists only prior to or following the activity. 4-Supervision or Touching Assistance-helper provides verbal cues and/or touching/steadying and/or contact guard assistance as patient completes activ ity. Assistance may be provided throughout the activity or intermittently. 3-Partial/Moderate Assistance-helper does LESS THAN HALF the effort. Early [place] lifts, holds or supports trunk or limbs, but provides less than half the effort. 2-Substantial/Maximal Assistance-helper does MORE THAN HALF the effort. Early [place] lifts or holds trunk or limbs and provides more than half the effort. 8-Nefqbezkh-qurybl does ALL the effort. Patient does none of the effort to complete the activity. Or, the assistance of 2 or more helpers is required for the patient to complete the activity. If activity was not attempted, code reason: 7-Patient Refused. 9-Not Applicable-not attempted and the patient did not perform the activity before the current illness, exacerbation or injury. 10-Not Attempted due to Environmental Limitations-(lack of equipment, weather restraints, etc.). 88-Not Attempted due to Medical Conditions or Safety Concerns. Sit to Stand (QC): 6 Weight Bearing Right Lower Extremity: Right Weight Bearing/Tolerated Left Lower Extremity: Left Weight Bearing/Tolerated Gait Training Distance: 750' Walk 10 feet (QC): 6 Walk 50 ft with 2 Turns(QC): 6 Walk 150 ft (QC): 6 Gait Assistive Device: None safe and functional with no deviation Assessment Patient is currently at independent [facility] with all gross motor skills. Patient to ambulate with nursing in [facility]. RN and PCT notified. PT to dismiss patient from services at this time. PT Residential Goals Residential Goals PT Residential Goals Time Frame: May 23, 2022 Roll Left & Right (QC): 6 Sit to Lying (QC): 6 Lying-Sitting on Side/Bed(QC): 6 Sit to Stand (QC): 6 Chair/Cmc-se-Nblrp Xfer(QC): 6 Toilet Transfer (QC): 6 Walk 10 feet (QC): 6 Walk 50ft with 2 Turns (QC): 6 Walk 150 ft (QC): 6 PT Plan Treatment/Plan Treatment Plan: Discontinue PT, goals met Treatment Plan: Education, Functional Activity Britni, Functional Strength, Ga it, Safety, Therapeutic Exercise, Transfers Treatment Duration: May 23, 2022 Frequency: 5 times per week Estimated Hrs Per Day: .25 hour per day Patient and/or Family Agrees t: Yes Time/GCodes Time In: 1022 Time Out: 1038 Total Billed Treatment Time: 16 Total Billed Treatment 1 visit FA 16 min JANES DELGADO PT May 22, 2022 10:55
[2022-05-22] MEDS: ENOXAPARIN 40 MG/0.4 ML (LOVENOX) SYR SC SCH (13:32)
--- NOTE | 2022-05-22 14:04 | Progress Note ---
Subjective Date Seen by a Provider: May 22, 2022 Time Seen by a Provider: 14:01 Subjective/Events-last exam Fwup right strangulated femoral hernia--S/P small intestine resection and hernia repair, HTN, acute on chronic renal insufficiency. Sitting up in chair. Accidentally pulled NG tube out during bed bath so Dr. Anaya has left out for now. Passing flatus. Minimal pain. Objective Exam Vital Signs Date Time Temp Pulse Resp B/P (MAP) Pulse Ox O2 Delivery O2 Flow Rate FiO2 05/22/22 12:27 37.3 71 19 141/63 (89) 95 Room Air 05/22/22 08:13 36.9 68 18 162/68 (99) 93 Room Air 05/22/22 08:00 Room Air 05/22/22 03:57 37.1 74 16 139/66 (90) 93 Room Air 05/22/22 00:01 37.5 74 16 168/72 (104) 95 Room Air 05/21/22 20:00 92 Room Air 05/21/22 19:19 36.8 87 18 157/73 (101) 92 Room Air 05/21/22 16:16 36.7 80 20 174/72 (106) 94 Room Air I & O 05/22/22 07:00 Intake Total 1000 ml Output Total 2500 ml Balance -1500 ml Capillary Refill : Less Than 3 Seconds General Appearance: No Apparent Distress Neck: Supple Respiratory: Lungs Clear, Decreased Breath Sounds Gastrointestinal: normal bowel sounds, non tender, soft Extremity: Non Tender, No Calf Tenderness, No Pedal Edema Neurologic/Psychiatric: Alert, Oriented x3 Skin: Warm/Dry, Other (right lower quadrant and midline abdomen incisions with khanh in place and no erythema or no drainage) Results Lab Laboratory Tests 05/22/22 05:20: White Blood Count 9.8, Red Blood Count 3.86, Hemoglobin 11.2L, Hematocrit 34L, Mean Corpuscular Volume 89, Mean Corpuscular Hemoglobin 29, Mean Corpuscular Hemoglobin Concent 33, Red Cell Distribution Width 11.9, Platelet Count 298, Mean Platelet Volume 10.2 Microbiology 05/18/22 Urine Culture - Final, Complete Mixed Bacterial Radha Assessment/Plan Assessment/Plan Assess & Plan/Chief Complaint 1. Right Strangulated Femoral Hernia--S/P small intestine resection and repair, pain control/IS/lovenox for DVT prophylaxis/protonix for GI prophylaxis, increase activity, NG tube out, passing flatus, surgery started clear liquids 2. Hypertension--will restart metoprolol tomorrow, currently on lopressor IV prn 3. Acute on Chronic Renal Insufficiency--BUN/Cr stable 4. Left Basilar Crackles--CXR shows atelectesis--continue IS and up to chair and ambulate, crackles improved today Clinical Quality Measures Admission Status Admission Dx 1. Strangulated Right Femoral Hernia--S/P open repair with removal of loop of small bowel by Dr. Anaya, NG tube in place, pain control, IS, start lovenox for DVT prophylaxis and on protonix for GI prophylaxis 2. Hypertension--will given lopressor IV prn until able to take po meds 3. Aortic Stenosis--stable 4. Acute on Chronic Renal Insufficiency--BUN/Cr improved today to 27/1.17 5. Low Back Pain/Osteoarthritis--will start lidocaine patches to back ZHEN ESCOBAR DO May 22, 2022 14:04
[2022-05-22] MEDS: LIDOCAINE PATCH REMOVAL TP SCH (21:00)
[2022-05-23] MEDS: ONDANSETRON 4 MG/2 ML (SDV) Z0FRAN IV PRN ×2 (01:40→06:21)
[2022-05-23] MEDS: LACTATED RINGERS 1,000 ML IV SCH ×3 (03:10→23:31)
[2022-05-23 03:49] VITALS: BP 137/74
[2022-05-23 05:56] LABS: HEMATOCRIT 36 % (35-52); MEAN CORPUSCULAR HEMOGLOBIN 29 pg (25-34); MEAN CORPUSCULAR HGB CONC 34 g/dL (32-36); MEAN CORPUSCULAR VOLUME 86 fL (80-99); MEAN PLATELET VOLUME 10.4 fL (9.0-12.2); PLATELET COUNT 324 10^3/uL (130-400); WHITE BLOOD COUNT 10.7 10^3/uL (4.3-11.0)
[2022-05-23 06:01] LABS: ALBUMIN 3.1 GM/DL (3.2-4.5)
[2022-05-23 06:02] LABS: POTASSIUM 3.4 MMOL/L (3.6-5.0)
[2022-05-23 06:03] LABS: CALCIUM 8.9 MG/DL (8.5-10.1)
[2022-05-23 06:04] LABS: TOTAL PROTEIN 6.1 GM/DL (6.4-8.2)
[2022-05-23 06:06] LABS: BILIRUBIN,TOTAL 0.8 MG/DL (0.1-1.0)
[2022-05-23 06:08] LABS: CREATININE SERUM 0.74 MG/DL (0.60-1.30)
[2022-05-23 07:47] VITALS: BP 150/75
[2022-05-23] MEDS: PANTOPRAZOLE 40 MG (PROTONIX) VIAL IV SCH (08:20)
[2022-05-23] MEDS: LIDOCAINE 4% (SALONPAS) PATCH TOP SCH (08:35)
[2022-05-23] MEDS: meTOprolol SUCCINATE 100 MG (TOPROL XL) TAB PO SCH (09:44)
[2022-05-23] MEDS ORDERED: CARBOXYMETHYLCELLULOSE SODIUM OP PRN (11:00)
[2022-05-23 11:07] VITALS: BP 150/70
[2022-05-23] MEDS ORDERED: ARTIFICAL TEARS 0.4 ML UNIT DOSE (REFRESH PLUS) OU PRN (11:15)
--- NOTE | 2022-05-23 11:23 | Progress Note - Hospitalist ---
Subjective HPI/CC On Admission Date Seen by Provider: May 23, 2022 Subjective/Events-last exam Pt reports feeling better today. Had a large BM. Nausea improving. Toelrating liquid diet now. Objective Exam Vital Signs Vital Signs Date Time Temp Pulse Resp B/P (MAP) Pulse Ox O2 Delivery O2 Flow Rate FiO2 05/23/22 11:07 37.6 75 20 150/70 (96) 93 Room Air 05/18/22 14:30 3.00 Capillary Refill : Less Than 3 Seconds General Appearance: No Apparent Distress, Thin Respiratory: Lungs Clear, No Respiratory Distress Cardiovascular: Regular Rate, Rhythm Neurologic/Psychiatric: Alert, Oriented x3 Results/Procedures Lab Laboratory Tests 05/23/22 05:39 Patient resulted labs reviewed. Assessment/Plan Assessment and Plan Assess & Plan/Chief Complaint 1. Strangulated Right Femoral Hernia--S/P open repair with removal of loop of small bowel by Dr. Anaya, NG tube out now, pain controlled, IS 2. Hypertension--metoprolol restarted yesterday by Dr Forrest, BP still elevated, resume home amlodipine 3. Aortic Stenosis--stable 4. Acute on Chronic Renal Insufficiency--stable 5. Low Back Pain/Osteoarthritis--continue start lidocaine patches to back 6. DVT ppx- Lovetrevx JESSICA SINGH MD May 23, 2022 11:23
--- NOTE | 2022-05-23 11:56 | Progress Note - Surgery ---
Subjective Date Seen by a Provider: May 23, 2022 Time Seen by a Provider: 11:54 Subjective/Events-last exam had bm this am. slight emesis this morning early but feeling better. Pain controlled. Denies fever sweats chill shortness of breath or chest pain at this time. Objective Exam Vital Signs Date Time Temp Pulse Resp B/P (MAP) Pulse Ox O2 Delivery O2 Flow Rate FiO2 05/23/22 11:07 37.6 75 20 150/70 (96) 93 Room Air 05/23/22 08:00 Room Air 05/23/22 07:47 37.7 81 16 150/75 (100) 92 Room Air 05/23/22 04:41 37.3 85 18 95 Room Air 05/23/22 03:49 37.9 114 18 137/74 (95) 94 Room Air 05/22/22 23:35 36.9 75 18 166/76 (106) 94 Room Air 05/22/22 20:30 94 Room Air 05/22/22 20:14 36.8 75 18 158/76 (103) 94 Room Air 05/22/22 15:50 37.5 92 18 154/70 (98) 95 Room Air 05/22/22 12:27 37.3 71 19 141/63 (89) 95 Room Air I & O 05/23/22 07:00 Intake Total 1110 ml Output Total 750 ml Balance 360 ml Capillary Refill : Less Than 3 Seconds General Appearance: No Apparent Distress, Thin HEENT: PERRL/EOMI, Normal ENT Inspection Neck: Supple Respiratory: Chest Non Tender, No Accessory Muscle Use, No Respiratory Distress Cardiovascular: Regular Rate, Rhythm Peripheral Pulses: 2+ Radial Pulses (R), 2+ Radial Pulses (L) Gastrointestinal: normal bowel sounds, non tender, soft, other (incisions c/d/i) Extremity: Non Tender, No Calf Tenderness, No Pedal Edema Neurologic/Psychiatric: Alert, Oriented x3 Skin: Normal Color, Warm/Dry, Other (right lower quadrant and midline abdomen incisions with khanh in place and no erythema or no drainage) Lymphatic: No Adenopathy Results Lab Laboratory Tests 05/23/22 05:39: White Blood Count 10.7, Red Blood Count 4.15, Hemoglobin 12.0, Hematocrit 36, Mean Corpuscular Volume 86, Mean Corpuscular Hemoglobin 29, Mean Corpuscular Hemoglobin Concent 34, Red Cell Distribution Width 11.8, Platelet Count 324, Mean Platelet Volume 10.4, Sodium Level 137, Potassium Level 3.4L, Chloride Level 98, Carbon Dioxide Level 24, Anion Gap 15H, Blood Urea Nitrogen 9, Creatinine 0.74, Estimat Glomerular Filtration Rate 83, BUN/Creatinine Ratio 12, Glucose Level 92, Calcium Level 8.9, Corrected Calcium 9.6, Total Bilirubin 0.8, Aspartate Amino Transf (AST/SGOT) 26, Alanine Aminotransferase (ALT/SGPT) 17, Alkaline Phosphatase 83, Total Protein 6.1L, Albumin 3.1L Microbiology 05/18/22 Urine Culture - Final, Complete Mixed Bacterial Radha Assessment/Plan Assessment/Plan Assessment/Plan Right femoral strangulated hernia Small bowel obstruction Flatus without bowel movement NG tube out S/p strangulated right femoral primary hernia repair and small bowel resection Continue IVF DVT prophylaxis, GI prophylaxis ambulating at least TID greater than 100 ft Encourage IS clears if tolerates all day will advance at dinner to soft. KEMI ÁLVAREZ DO May 23, 2022 11:56
[2022-05-23] MEDS: ENOXAPARIN 40 MG/0.4 ML (LOVENOX) SYR SC SCH (13:06)
[2022-05-23 15:21] VITALS: BP 163/80
[2022-05-23 19:22] VITALS: BP 145/80
[2022-05-23] MEDS: LIDOCAINE PATCH REMOVAL TP SCH (20:21)
[2022-05-23] MEDS ORDERED: amLODIPine 10 MG (NORVASC) TAB PO SCH (21:00)
[2022-05-23 23:49] VITALS: BP 151/70
[2022-05-24 03:26] VITALS: BP 144/71
[2022-05-24 07:20] VITALS: BP 148/73
[2022-05-24] MEDS: PANTOPRAZOLE 40 MG (PROTONIX) VIAL IV SCH (08:12)
[2022-05-24] MEDS: meTOprolol SUCCINATE 100 MG (TOPROL XL) TAB PO SCH (08:12)
[2022-05-24] MEDS ORDERED: LACTOBACILLUS ACIDOPHILUS (PROBIOTIC) CAPSULE PO SCH (09:00)
[2022-05-24] MEDS ORDERED: NON-FORMULARY MEDICATION 1 EA EA (Lactobacillus Acidophilus (Probiotic) 1 EACH) PO SCH (09:00)
[2022-05-24] MEDS: LIDOCAINE 4% (SALONPAS) PATCH TOP SCH (09:23)
[2022-05-24 09:53] LABS: HEMATOCRIT 34 % (35-52); HEMOGLOBIN 11.6 g/dL (11.5-16.0); MEAN CORPUSCULAR HEMOGLOBIN 29 pg (25-34); MEAN CORPUSCULAR HGB CONC 34 g/dL (32-36); MEAN CORPUSCULAR VOLUME 86 fL (80-99); PLATELET COUNT 340 10^3/uL (130-400); WHITE BLOOD COUNT 9.1 10^3/uL (4.3-11.0)
[2022-05-24] MEDS: LACTATED RINGERS 1,000 ML IV SCH (09:57)
[2022-05-24 10:04] LABS: POTASSIUM 3.2 MMOL/L (3.6-5.0)
[2022-05-24 10:05] LABS: CALCIUM 8.4 MG/DL (8.5-10.1)
[2022-05-24 10:09] LABS: CREATININE SERUM 0.71 MG/DL (0.60-1.30)
[2022-05-24 11:26] VITALS: BP 151/80
[2022-05-24] MEDS: ENOXAPARIN 40 MG/0.4 ML (LOVENOX) SYR SC SCH (13:10)
--- NOTE | 2022-05-24 15:33 | Progress Note - Surgery ---
Subjective Date Seen by a Provider: May 24, 2022 Time Seen by a Provider: 11:28 Subjective/Events-last exam Having bowel function. No nausea or emesis. Tolerating liquids. Pain controlled. Denies fever sweats chills shortness of breath or chest pain. Objective Exam Vital Signs Date Time Temp Pulse Resp B/P (MAP) Pulse Ox O2 Delivery O2 Flow Rate FiO2 05/24/22 11:26 36.7 84 18 151/80 (103) 94 Room Air 05/24/22 08:20 93 Room Air 05/24/22 07:20 36.7 80 18 148/73 (98) 93 Room Air 05/24/22 03:26 36.8 76 18 144/71 (95) 94 Room Air 05/23/22 23:49 36.9 79 18 151/70 (97) 95 Room Air 05/23/22 20:20 Room Air 05/23/22 19:22 37.0 75 18 145/80 (101) 95 Room Air I & O 05/24/22 07:00 Intake Total 1780 ml Output Total 1800 ml Balance -20 ml Capillary Refill : Less Than 3 Seconds General Appearance: No Apparent Distress, Thin HEENT: PERRL/EOMI, Normal ENT Inspection Neck: Supple Respiratory: Chest Non Tender, No Accessory Muscle Use, No Respiratory Distress Cardiovascular: Regular Rate, Rhythm, No JVD Peripheral Pulses: 2+ Radial Pulses (R), 2+ Radial Pulses (L) Gastrointestinal: normal bowel sounds, non tender, soft, other (incisions c/d/i) Extremity: Non Tender, No Calf Tenderness, No Pedal Edema Neurologic/Psychiatric: Alert, Oriented x3 Skin: Normal Color, Warm/Dry, Other (right lower quadrant and midline abdomen incisions with khanh in place and no erythema or no drainage) Lymphatic: No Adenopathy Results Lab Laboratory Tests 05/24/22 09:43: White Blood Count 9.1, Red Blood Count 4.00, Hemoglobin 11.6, Hematocrit 34L, Mean Corpuscular Volume 86, Mean Corpuscular Hemoglobin 29, Mean Corpuscular Hemoglobin Concent 34, Red Cell Distribution Width 11.7, Platelet Count 340, Mean Platelet Volume 10.0, Sodium Level 140, Potassium Level 3.2L, Chloride L evel 100, Carbon Dioxide Level 28, Anion Gap 12, Blood Urea Nitrogen 6L, Creatinine 0.71, Estimat Glomerular Filtration Rate 87, BUN/Creatinine Ratio 8, Glucose Level 104, Calcium Level 8.4L Microbiology 05/18/22 Urine Culture - Final, Complete Mixed Bacterial Radha Assessment/Plan Assessment/Plan Assessment/Plan Right femoral strangulated hernia Small bowel obstruction +bowel function NG tube out S/p strangulated right femoral primary hernia repair and small bowel resection Continue IVF DVT prophylaxis, GI prophylaxis ambulating at least TID greater than 100 ft Encourage IS tolerating clears advance diet if does okay likely home today or tomorrow. KEMI ÁLVAREZ DO May 24, 2022 15:33
--- NOTE | 2022-05-24 15:35 | Discharge Inst-Simple/Standard ---
Discharge Inst-Standard Patient Instructions/Follow Up Plan of Care/Instructions/FU: 2 weeks Héctor Activity as Tolerated: No Discharge Diet: Regular Diet Other Inst to Patient Follow up Appt: Make appointment for 2 week. Instructions: No lifting greater than 10 pounds. No strenuous activity. May shower in 24 hours, no tub bath or soaking. Use incentive spirometer at home as directed. No Smoking Skin/Wound Care: You have khanh at incisions, keep area clean and dry. Symptoms to Report: Appetite Changes, Extremity Discoloration, Numbness/Tingling, Swelling Increased, Bleeding Excessive, Eyesight Changes, Pain Increased, Urine Color Change, Constipation(Persistent), Fever over 101 degree F, Pain/Pressure in chest, Urinating Difficulty, Cough Up/Vomit Blood, Heart Beat Irreg/Pounding, Pain/Pressure in jaw, Vaginal Bleeding Increase, Cramps in feet or legs, Lightheadedness, Pain/Pressure in shoulder, Diarrhea(Persistent), Memory Changes Suddenly, Questions/Concerns, Weight gain consecutive days, Dizziness/Fainting, Nausea/Vomiting, Shortness of Breath, Weight gain over 2 pounds If questions or concerns contact your physician Or seek help at emergency department. KEMI ÁLVAREZ DO May 24, 2022 15:35
[2022-05-24 15:55] VITALS: BP 141/66
--- NOTE | 2022-05-24 21:38 | DISCHARGE SUMMARY ---
DATE OF SERVICE: ADMITTING PHYSICIAN: Kemi Anaya DO CONSULTING PHYSICIAN: Dr. Forrest. ADMITTING DIAGNOSES: Right inguinal incarcerated hernia, small bowel obstruction. DISCHARGE DIAGNOSES: Strangulated femoral hernia status post open right strangulated femoral hernia repair, primary with small bowel resection, hypertension, aortic stenosis, acute on chronic renal insufficiency, low back pain/osteoarthritis. HOSPITAL COURSE: The patient is a 77-year-old female, who presented to the Emergency Department with right inguinal hernia. She was taken to the operating room on admission day and had strangulated femoral hernia, which also required a small bowel resection. Due to the bowel, primary repair was performed of the femoral hernia. The patient postoperatively was given pain control, awaited bowel return she was slowly advanced on diet. The patient slowly improved to where she could be discharged home on 05/24/2022. She has followup. Please see hospital chart for further discharge information. Job ID: [id number] DocumentID: [id number] Dictated Date: 05/24/2022 19:23:23 Telephone Answerer Date: 05/24/2022 21:37:51 Dictated By: KEMI ANAYA DO
== END 2022-05-24 19:32 | disposition home or self-care (01) | DRG 330 ==
LOC: EDUNIT# 08:20 → ER 08:22 → SDC 12:17 → 4TH 13:47
PROVIDERS: ADMIT Surgery; ATTEND Surgery
PROC: 0DB80ZZ Excision of Small Intestine, Open Approach (ICD-10-PCS; 2022-05-18)
PROC: 0YQ70ZZ Repair Right Femoral Region, Open Approach (ICD-10-PCS; principal; 2022-05-18 12:41)
DX: K41.30 Unilateral femoral hernia, with obstruction, without gangrene, not specified as recurrent (principal); J98.11 Atelectasis; N28.9 Disorder of kidney and ureter, unspecified; I12.9 Hypertensive chronic kidney disease with stage 1 through stage 4 chronic kidney disease, or unspecified chronic kidney disease; N18.9 Chronic kidney disease, unspecified; I35.0 Nonrheumatic aortic (valve) stenosis; M19.91 Primary osteoarthritis, unspecified site; Z88.0 Allergy status to penicillin; Z90.13 Acquired absence of bilateral breasts and nipples
CPT/HCPCS: 36415; 71045; 74176; 80048; 80053; 81000; 83690; 85025; 85027; 86141; 87088